=== PATIENT | male | born 1940 | race Caucasian/White ===

== ENCOUNTER → 2020-06-08 | Outpatient (CLI) | payer MEDICARE | END | disposition home or self-care (01) | LOC: SHCH 15:56 | PROVIDERS: ATTEND Internal Medicine Cardiovascular Disease | DX: I08.0 Rheumatic disorders of both mitral and aortic valves (principal); I42.0 Dilated cardiomyopathy | CPT/HCPCS: 93306; 93356 ==

== ENCOUNTER → 2022-04-09 | Outpatient (CLI) | payer MEDICARE | END | disposition home or self-care (01) | LOC: SHCH 08:21 | PROVIDERS: ATTEND Internal Medicine Cardiovascular Disease | DX: I35.8 Other nonrheumatic aortic valve disorders (principal); I51.7 Cardiomegaly; I48.0 Paroxysmal atrial fibrillation | CPT/HCPCS: 93306 ==

== ENCOUNTER 2023-03-28 08:00 | Day surgery (SDC) | payer MEDICARE ==
[2023-03-27 15:25] LABS: BASOPHILS # (AUTO) 0.04 K/uL (0.00-0.20); BASOPHILS % (AUTO) 0.5 % (0.0-5.0); EOSINOPHILS # (AUTO) 0.16 K/uL (0.00-0.70); EOSINOPHILS % (AUTO) 1.9 % (0.0-8.0); HEMATOCRIT 48.6 % (42-54); IMMATURE GRANULOCYTE ABSOLUTE 0.03 K/uL (0-1); LYMPHOCYTES % (AUTO) 24.5 % (21.0-51.0); MEAN CORPUSCULAR HEMOGLOBIN 31.6 pg (27.0-33.0); MEAN CORPUSCULAR HGB CONC 33.3 g/dL (32.0-36.0); MEAN CORPUSCULAR VOLUME 94.7 fL (79-99); MONOCYTES # (AUTO) 0.6 K/uL (0.1-1.0); NEUTROPHILS # (AUTO) 5.4 K/uL (1.8-7.7); NEUTROPHILS % (AUTO) 65.7 % (40.0-77.0); PLATELET COUNT (AUTO) 142 K/uL (130-400); RED BLOOD CELL COUNT(AUTO) 5.13 MIL/uL (4.50-6.20); RED CELL DISTRIBUTION WIDTH 15.2 % (11.0-15.5); WHITE BLOOD COUNT (AUTO) 8.2 K/uL (4.8-10.8)
[2023-03-27 15:40] LABS: INR 0.97 (0.85-1.15); PROTHROMBIN TIME 11.3 SEC (9.6-11.6)
[2023-03-27 15:42] LABS: ALBUMIN 3.3 g/dL (3.5-5.0); BILIRUBIN,TOTAL 0.6 mg/dL (0.2-1.0); CREATININE 1.2 mg/dL (0.5-1.5); PARTIAL THROMBOPLASTIN TIME 29.4 SEC (26.3-35.5); POTASSIUM 4.5 mmol/L (3.5-5.1); TOTAL PROTEIN, SERUM 6.6 g/dL (6.0-8.3)
[2023-03-27 16:24] VITALS: BP 130/70; PULSE 75; RESP 20
[~2023-03-28] VITALS: Ht 182.9 cm; Wt 101.4 kg
[2023-03-28] VITALS (9 sets, daily range): BP systolic 99–128; BP diastolic 56–87; PULSE 61–130; RESP 13–17
[~2023-03-28 08:00] MED LIST: APIX5TAB PO; ATOR20TA65 PO; BETA1TAB20 PO; CEFD300C3 PO; DAPA5TAB PO; DUPI300S SQ; EYLEA INJ; LOSA50TA64 PO; METO-408 PO; TAMS-1 PO; timolol OU
[2023-03-28] MEDS ORDERED: 0.9%NACL 1000ML 1,000 ML IV ONE ×2 (08:52→10:00)
[2023-03-28] MEDS ORDERED: LIDOCAINE HCL 400MG/20ML VIAL ONE (13:48)
[2023-03-28] MEDS ORDERED: MIDAZOLAM HCL 1 MG/ML 2ML VIAL ONE ×2 (13:48→14:50)
[2023-03-28] MEDS ORDERED: MEPERIDINE-PF 25 MG/ML SYG ONE ×2 (13:48→14:49)
[2023-03-28] MEDS ORDERED: HEPARIN 10,000 UNIT/10ML (1,000 UNIT/ML) VIAL ONE (13:48)
== END 2023-03-28 18:57 | disposition home or self-care (01) ==
LOC: DAH 08:00
PROVIDERS: ATTEND Internal Medicine Cardiovascular Disease
DX: I48.3 Typical atrial flutter (principal); I44.1 Atrioventricular block, second degree; I42.8 Other cardiomyopathies; I50.22 Chronic systolic (congestive) heart failure; K21.9 Gastro-esophageal reflux disease without esophagitis; Z90.49 Acquired absence of other specified parts of digestive tract; Z98.890 Other specified postprocedural states; Z79.01 Long term (current) use of anticoagulants; Z79.899 Other long term (current) drug therapy
CPT/HCPCS: 80053; 85025; 85610; 85730; 36415; 93005 ×2; 93653; C1894 ×2; C1732 ×2; A4649 ×2; J3490; J7030; J1644 ×2; J2250 ×2; J2175 ×2; A4215; A4222; A4221; A4663; A4216; A4223 ×3; 99156; 99157

== ENCOUNTER → 2023-04-02 | Outpatient (CLI) | payer MEDICARE ==
[~2023-04-02] MED LIST changes: +PROP225T3 PO; +TIMO.5OS OU
== END | disposition home or self-care (01) ==
LOC: SHCH 14:41
PROVIDERS: ATTEND Internal Medicine Cardiovascular Disease
DX: I42.8 Other cardiomyopathies (principal); I48.3 Typical atrial flutter
CPT/HCPCS: 93306

== ENCOUNTER 2023-05-02 06:27 | Day surgery (SDC) | payer MEDICARE ==
[2023-04-30 13:52] VITALS: BP 107/64; PULSE 73; RESP 19
[2023-04-30 13:55] LABS: BASOPHILS # (AUTO) 0.03 K/uL (0.00-0.20); BASOPHILS % (AUTO) 0.4 % (0.0-5.0); EOSINOPHILS # (AUTO) 0.15 K/uL (0.00-0.70); EOSINOPHILS % (AUTO) 1.9 % (0.0-8.0); HEMATOCRIT 44.3 % (42-54); IMMATURE GRANULOCYTE ABSOLUTE 0.03 K/uL (0-1); LYMPHOCYTES # (AUTO) 1.7 K/uL (1.0-4.8); LYMPHOCYTES % (AUTO) 20.7 % (21.0-51.0); MEAN CORPUSCULAR HEMOGLOBIN 31.9 pg (27.0-33.0); MEAN CORPUSCULAR HGB CONC 34.1 g/dL (32.0-36.0); MEAN CORPUSCULAR VOLUME 93.5 fL (79-99); MONOCYTES # (AUTO) 0.5 K/uL (0.1-1.0); MONOCYTES % (AUTO) 6.5 % (3.0-13.0); NEUTROPHILS # (AUTO) 5.6 K/uL (1.8-7.7); NEUTROPHILS % (AUTO) 70.1 % (40.0-77.0); PLATELET COUNT (AUTO) 132 K/uL (130-400); RED BLOOD CELL COUNT(AUTO) 4.74 MIL/uL (4.50-6.20); RED CELL DISTRIBUTION WIDTH 14.8 % (11.0-15.5)
[2023-04-30 14:03] LABS: CREATININE 1.2 mg/dL (0.5-1.5); POTASSIUM 4.1 mmol/L (3.5-5.1)
[~2023-05-02] VITALS: Ht 182.9 cm; Wt 103.9 kg
[2023-05-02] VITALS (8 sets, daily range): BP systolic 100–106; BP diastolic 54–61; PULSE 57–64; RESP 16
[~2023-05-02 06:27] MED LIST changes: -CEFD300C3 PO; -DUPI300S SQ; -EYLEA INJ; -timolol OU
[2023-05-02] MEDS: 0.9%NACL 1000ML 1,000 ML IV ONE (07:44)
[2023-05-02] MEDS ORDERED: PROPOFOL 10 MG/ML 20ML VIAL IV ONE (09:17)
[2023-05-02] MEDS ORDERED: SUCCINYLCHOLINE CHLORIDE 20 MG/ML 10 ML VIAL ONE (09:18)
== END 2023-05-02 10:50 | disposition home or self-care (01) ==
LOC: DAH 06:27
PROVIDERS: ATTEND Internal Medicine Cardiovascular Disease
DX: I48.19 Other persistent atrial fibrillation (principal); I48.92 Unspecified atrial flutter; K21.9 Gastro-esophageal reflux disease without esophagitis; I25.2 Old myocardial infarction; Z83.3 Family history of diabetes mellitus; Z82.49 Family history of ischemic heart disease and other diseases of the circulatory system; Z82.5 Family history of asthma and other chronic lower respiratory diseases; Z82.3 Family history of stroke; Z83.79 Family history of other diseases of the digestive system; Z72.89 Other problems related to lifestyle
CPT/HCPCS: 80048; 85025; 36415; 92960; 93005 ×2; J0330; J7030; J2704; A4620; A4215; A4213; A4222; A4221; A4663; A4216; A4223 ×3; 96360; J3490

== ENCOUNTER → 2024-04-15 | Outpatient (CLI) | payer MEDICARE ==
[~2024-04-15] VITALS: Ht 182.9 cm; Wt 101.6 kg
[~2024-04-15] MED LIST changes: +AMIO200T68 PO; +DRON400T7 PO
[2024-04-15 13:46] LABS: BASOPHILS # (AUTO) 0.03 K/uL (0.00-0.20); BASOPHILS % (AUTO) 0.3 % (0.0-5.0); EOSINOPHILS # (AUTO) 0.08 K/uL (0.00-0.70); EOSINOPHILS % (AUTO) 0.8 % (0.0-8.0); HEMATOCRIT 45.7 % (42-54); IMMATURE GRANULOCYTE ABSOLUTE 0.04 K/uL (0-1); LYMPHOCYTES # (AUTO) 1.4 K/uL (1.0-4.8); LYMPHOCYTES % (AUTO) 13.8 % (21.0-51.0); MEAN CORPUSCULAR HEMOGLOBIN 31.6 pg (27.0-33.0); MEAN CORPUSCULAR HGB CONC 33.7 g/dL (32.0-36.0); MEAN CORPUSCULAR VOLUME 93.6 fL (79-99); MONOCYTES # (AUTO) 0.7 K/uL (0.1-1.0); MONOCYTES % (AUTO) 6.9 % (3.0-13.0); NEUTROPHILS # (AUTO) 7.7 K/uL (1.8-7.7); NEUTROPHILS % (AUTO) 77.8 % (40.0-77.0); PLATELET COUNT (AUTO) 146 K/uL (130-400); RED BLOOD CELL COUNT(AUTO) 4.88 MIL/uL (4.50-6.20); RED CELL DISTRIBUTION WIDTH 15.4 % (11.0-15.5); WHITE BLOOD COUNT (AUTO) 9.9 K/uL (4.8-10.8)
[2024-04-15 13:55] VITALS: BP 141/91; PULSE 96; RESP 15; TEMP 98.1
[2024-04-15 13:56] LABS: CREATININE 0.9 mg/dL (0.5-1.3); POTASSIUM 4.2 mmol/L (3.5-5.1)
== END | disposition home or self-care (01) ==
LOC: CANPRESDC → DAH 13:14 → EDSTATUS 04-17 08:00
PROVIDERS: ATTEND Internal Medicine Cardiovascular Disease
DX: Z01.812 Encounter for preprocedural laboratory examination (principal); I48.19 Other persistent atrial fibrillation
CPT/HCPCS: 36415; 80048; 85025

== ENCOUNTER 2024-04-16 08:41 | Observation (INO) | payer MEDICARE ==
[2024-04-16] VITALS (7 sets, daily range): BP systolic 120–140; BP diastolic 74–97; PULSE 54–108; RESP 16–20; TEMP 98.1–98.7; O2SAT 96–97
[~2024-04-16] VITALS: Ht 182.9 cm; Wt 100.0 kg
[~2024-04-16 08:41] MED LIST changes: -AMIO200T68 PO; -LOSA50TA64 PO; -PROP225T3 PO
[2024-04-16 10:25] LABS: HEMATOCRIT 44.2 % (42-54); MEAN CORPUSCULAR HEMOGLOBIN 31.8 pg (27.0-33.0); MEAN CORPUSCULAR HGB CONC 33.5 g/dL (32.0-36.0); MEAN CORPUSCULAR VOLUME 94.8 fL (79-99); RED BLOOD CELL COUNT(AUTO) 4.66 MIL/uL (4.50-6.20); RED CELL DISTRIBUTION WIDTH 15.2 % (11.0-15.5); WHITE BLOOD COUNT (AUTO) 10.1 K/uL (4.8-10.8)
[2024-04-16 10:52] LABS: BILIRUBIN,TOTAL 0.6 mg/dL (0.2-1.0); CREATININE 1.1 mg/dL (0.5-1.3); MAGNESIUM 2.1 mg/dL (1.80-2.40); POTASSIUM 4.2 mmol/L (3.5-5.1); THYROID STIMULATING HORMONE 1.3 uIU/mL (0.36-3.74); TOTAL PROTEIN, SERUM 5.6 g/dL (6.0-8.3)
--- NOTE | 2024-04-16 11:00 | NUR ---
PATIENT PLACED INTO RM 18.
[2024-04-16] MEDS ORDERED: PoTASSium chloRIDE 20MEQ ER 20 MEQ ERTAB PO PRN (12:30)
[2024-04-16] MEDS ORDERED: PoTASSium chl 10% ELIXIR 20MEQ 20 MEQ/15 ML UDCUP PO PRN (12:30)
[2024-04-16] MEDS ORDERED: PoTASSium chloRIDE 20MEQ/100ML 100 ML IV PRN (12:30)
[2024-04-16] MEDS: AMIOdarone 900MG VIAL 150 MG in DEXTROSE 5%-WATER 100 ML IV SCH (13:07)
[2024-04-16] MEDS: AMIOdarone 900MG VIAL 360 MG in DEXTROSE 5%-WATER 200 ML IV SCH (13:15)
[2024-04-16] MEDS: AMIOdarone 900MG VIAL 540 MG in DEXTROSE 5%-WATER 300 ML IV SCH (19:35)
[2024-04-16] MEDS: COPPER PO SCH (20:23)
[2024-04-16] MEDS: TIMOLOL MALEATE 0.5% 5 ML BOTTLE OU SCH (20:23)
[2024-04-16] MEDS: ZINC PO SCH (20:23)
[2024-04-16] MEDS: VIT C PO SCH (20:23)
[2024-04-16] MEDS: VIT E PO SCH (20:23)
[2024-04-16] MEDS: VIT A PO SCH (20:23)
[2024-04-16] MEDS: tamSULOsin HCL 0.4 MG CAP.ER.24H PO SCH (20:24)
[2024-04-16] MEDS: atorVAStatin 20 MG TABLET PO SCH (20:24)
[2024-04-16] MEDS: APIXaban 5 MG TABLET PO SCH (20:24)
[2024-04-17] VITALS (13 sets, daily range): BP systolic 117–134; BP diastolic 46–82; PULSE 53–97; RESP 16–18; TEMP 97.9–99.6; O2SAT 96
[2024-04-17] MEDS: (Dapagliflozin Propanediol (Farxiga) 5 MG) PO SCH (09:00)
[2024-04-17] MEDS ORDERED: proPOFol 10 MG/ML 20ML VIAL IV ONE (11:04)
--- NOTE | 2024-04-17 11:35 | NUR ---
CARDIO VERSION COMPLETED BY DR MASSEY ANESTHESIA PRESENT
--- NOTE | 2024-04-17 12:07 | PRN ---
Procedure Note INDICATION FOR PROCEDURE: Persistent atrial fibrillation PROCEDURE: Cardioversion DATE OF PROCEDURE: 04/17/24 VINYL WELDER AND FABRICATOR: Breezy Massey MD PROCEDURE NOTE: The patient was brought to the day patient area in a fasting state. Anesthesia was provided by the anesthesia service. A synchronized shock of 120 joules was delivered resulting in sinus rhythm. The patient tolerated the procedure well. There were no complications. COMPLICATIONS: None IMPRESSION: Persistent atrial fibrillation status post successful cardioversion PLAN: 1. The patient will be observed and discharged home later today once amiodarone infusion is completed. 2. Follow-up with me in the office in approximately two weeks. BREEZY MASSEY MD Apr 17, 2024 12:07
[2024-04-17] MEDS ORDERED: AMIO200T68 PO (12:11)
--- NOTE | 2024-04-17 16:54 | EKG ---
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
[2024-04-17] MEDS: AMIOdarone 200 MG TABLET PO ONE (17:20)
[2024-04-18] MEDS ORDERED: metOPROLol sucCINATE 25 MG TAB.SR.24H PO SCH (09:00)
== END 2024-04-17 17:30 | disposition home or self-care (01) ==
LOC: EDH 08:41 → DIRECT 08:42 → 2AH 11:33
PROVIDERS: ADMIT Internal Medicine Cardiovascular Disease; ATTEND Internal Medicine Cardiovascular Disease
DX: I48.19 Other persistent atrial fibrillation (principal); I42.8 Other cardiomyopathies; I49.5 Sick sinus syndrome; I10 Essential (primary) hypertension; I49.9 Cardiac arrhythmia, unspecified; Z79.899 Other long term (current) drug therapy
CPT/HCPCS: 96365; 96366 ×2; 84443; 83735; 80053; 85027; 36415; 92960; 93005; G0378 ×32; G0379; J7060 ×3; J0282 ×3; J2704; J3490

== ENCOUNTER 2024-05-12 06:01 | Day surgery (SDC) | payer MEDICARE ==
[2024-05-08 12:03] VITALS: BP 179/88; PULSE 51; RESP 16; TEMP 97.4
--- NOTE | 2024-05-08 12:09 | EKG ---
[facility] Test Date: 2024-05-08 Test Time: 12:45:54 Pat Name: ADAMS GAXIOLA Department: [facility] Room: Gender: M Extractor Loader And Unloader: [id number] : 1940 Requested By: JAZMIN MASSEY Order Number: [id number] Reading MD: Mitchell Leone Measurements Intervals [place] Rate: 53 P: -19 UT: 157 QRS: 45 QRSD: 122 T: 165 QT: 488 QTc: 459 Interpretive Statements Sinus rhythm Nonspecific intraventricular conduction delay Compared to ECG 04/17/2024 11:40:42 Intraventricular conduction delay now present Electronically Signed On 05-08-2024 14:50:24 INVISIBLE BRACES ORTHODONTIST by Mitchell Leone Please click the below link to view image of tracing.
[2024-05-08 12:37] LABS: POTASSIUM 5.1 mmol/L (3.5-5.1)
[2024-05-08 13:02] LABS: BASOPHILS # (AUTO) 0.03 K/uL (0.00-0.20); BASOPHILS % (AUTO) 0.3 % (0.0-5.0); EOSINOPHILS # (AUTO) 0.04 K/uL (0.00-0.70); EOSINOPHILS % (AUTO) 0.4 % (0.0-8.0); HEMATOCRIT 46.5 % (42-54); IMMATURE GRANULOCYTE ABSOLUTE 0.08 K/uL (0-1); LYMPHOCYTES # (AUTO) 1.7 K/uL (1.0-4.8); LYMPHOCYTES % (AUTO) 18.5 % (21.0-51.0); MEAN CORPUSCULAR HGB CONC 33.1 g/dL (32.0-36.0); MEAN CORPUSCULAR VOLUME 96.5 fL (79-99); MONOCYTES # (AUTO) 0.6 K/uL (0.1-1.0); MONOCYTES % (AUTO) 6.7 % (3.0-13.0); NEUTROPHILS # (AUTO) 6.7 K/uL (1.8-7.7); NEUTROPHILS % (AUTO) 73.2 % (40.0-77.0); PLATELET COUNT (AUTO) 159 K/uL (130-400); RED BLOOD CELL COUNT(AUTO) 4.82 MIL/uL (4.50-6.20); RED CELL DISTRIBUTION WIDTH 15.8 % (11.0-15.5); WHITE BLOOD COUNT (AUTO) 9.1 K/uL (4.8-10.8)
[2024-05-08 13:04] LABS: INR 1.05 (0.85-1.15); PROTHROMBIN TIME 11.1 SEC (9.6-11.6)
[2024-05-08 13:05] LABS: PARTIAL THROMBOPLASTIN TIME 28.8 SEC (26.3-35.5)
[~2024-05-12] VITALS: Ht 182.9 cm; Wt 101.8 kg
[2024-05-12] VITALS (19 sets, daily range): BP systolic 98–153; BP diastolic 52–76; PULSE 46–54; RESP 13–17; TEMP 97.1–97.9
[~2024-05-12 06:01] MED LIST changes: +AMIO200T68 PO; -DRON400T7 PO
[2024-05-12] MEDS ORDERED: FENTanyl CITRate PF 50 MCG/1 ML 2ML VIAL ONE (06:48)
[2024-05-12] MEDS ORDERED: proPOFol 10 MG/ML 20ML VIAL IV ONE (06:48)
[2024-05-12] MEDS ORDERED: rocuRONium bROMide 10MG/1ML 5ML VL ONE ×2 (06:48→10:27)
[2024-05-12] MEDS ORDERED: LIDOCAINE PF 100MG/5ML (2%) SYRINGE 5ML ONE (06:48)
[2024-05-12] MEDS ORDERED: ondanSETRON 4MG INJ ONE (06:49)
[2024-05-12] MEDS ORDERED: phenylEPHRINE HCL 10 MG/ML 1ML VIAL IV ONE (06:49)
[2024-05-12] MEDS: 0.9%NACL 1000ML 1,000 ML IV ONE (07:27)
[2024-05-12] MEDS ORDERED: HEParin 10,000 UNIT/10ML (1,000 UNIT/ML) VIAL ONE ×3 (07:47→12:36)
[2024-05-12] MEDS ORDERED: HEParin-NS 1,000 UNIT/500 ML 1,500 ML IV ONE (07:47)
[2024-05-12] MEDS ORDERED: LIDOCAINE HCL 1% MDV 50ML VIAL ONE (07:47)
[2024-05-12] MEDS ORDERED: GLYCOPYRROLATE 0.2 MG/ML 5 ML VIAL ONE (10:27)
[2024-05-12] MEDS ORDERED: PROTamine SULFate 10 MG/ML 25ML VIAL IV ONE (13:03)
[2024-05-12] MEDS ORDERED: SUGAMMADEX SODIUM 200 MG/2 ML VIAL IV ONE (13:18)
[2024-05-12] MEDS ORDERED: PANT40TA55 PO (13:25)
[2024-05-12] MEDS ORDERED: SUCR1TAB2 PO (13:25)
[2024-05-12] MEDS: SUCRALFATE 1 GM/10 ML PO ONE (15:12)
[2024-05-12] MEDS: PANTOPrazole 40 MG TAB DR PO ONE (15:12)
== END 2024-05-12 16:04 | disposition home or self-care (01) ==
LOC: DAH 06:01
PROVIDERS: ATTEND Internal Medicine Cardiovascular Disease
DX: I48.19 Other persistent atrial fibrillation (principal); I10 Essential (primary) hypertension; I25.10 Atherosclerotic heart disease of native coronary artery without angina pectoris; I42.8 Other cardiomyopathies; I48.92 Unspecified atrial flutter; K21.9 Gastro-esophageal reflux disease without esophagitis; E66.9 Obesity, unspecified; Z90.49 Acquired absence of other specified parts of digestive tract; Z96.649 Presence of unspecified artificial hip joint; Z96.659 Presence of unspecified artificial knee joint; Z68.30 Body mass index [BMI] 30.0-30.9, adult; Z79.01 Long term (current) use of anticoagulants; Z79.899 Other long term (current) drug therapy
CPT/HCPCS: 80048; 85025; 85610; 85730; 36415; 93005; 93656; 85347 ×10; C1894 ×3; C1732 ×3; A4649 ×2; C1760 ×3; C1766; J3010; J7030; J3490 ×4; J2003; J1644 ×4; J2704; J2405; J2371; A4215; A4222; A4221; A4663; A4216; A4606; J2720; A4223 ×3

== ENCOUNTER 2025-02-08 11:26 | Inpatient (IN) | payer MEDICARE ==
[~2025-02-08] VITALS: Ht 182.9 cm; Wt 101.2 kg
--- NOTE | 2025-02-08 12:05 | EKG ---
[facility] Test Date: 2025-02-08 Test Time: 11:30:39 Pat Name: ADAMS GAXIOLA Department: ED Room: Gender: M Train Starter: [id number] : 1940 Requested By: RHETT RANKIN Order Number: [id number] Reading MD: Nathan Miller Measurements Intervals [place] Rate: 107 P: 0 SC: 0 QRS: 1 QRSD: 141 T: 20 QT: 398 QTc: 532 Interpretive Statements Atrial flutter Ventricular premature complex Right bundle branch block Electronically Signed On 02-08-2025 13:17:37 DENTAL HYGIENE TEACHER by Nathan Miller Please click the below link to view image of tracing.
[2025-02-08 12:12] LABS: NUCLEATED RED BLOOD CELLS 0.0 % (0.0-0.19); PLATELET COUNT (AUTO) 134.0 K/uL (130-400); RED BLOOD CELL COUNT(AUTO) 5.04 MIL/uL (4.50-6.20); RED CELL DISTRIBUTION WIDTH 15.0 % (11.0-15.5); WHITE BLOOD COUNT (AUTO) 9.3 K/uL (4.8-10.8)
[2025-02-08 12:24] LABS: CREATININE 1.0 mg/dL (0.5-1.3); GLOMERULAR FILTR. RATE CALC 75.0 mL/min (>90); GLUCOSE,RANDOM 113.0 mg/dL (70-105); SODIUM SERUM 141.0 mmol/L (136-145); UREA NITROGEN, BLOOD 18.0 mg/dL (7-18)
[2025-02-08 12:28] LABS: ASPARTATE AMINOTRANSFERASE 21.0 U/L (10-37); TOTAL PROTEIN, SERUM 6.2 g/dL (6.0-8.3)
[2025-02-08 12:35] LABS: APPEARANCE,URINE CLEAR (CLEAR); GLUCOSE, URINE (UA) >=1000 mg/dL (NEGATIVE); LEUKOCYTE ESTERASE ,URINE NEGATIVE Leu/uL (NEGATIVE); NITRATE,URINE NEGATIVE (NEGATIVE); OCCULT BLOOD,URINE NEGATIVE (NEGATIVE)
[2025-02-08 12:37] LABS: ADD UA MICROSCOPIC YES
--- NOTE | 2025-02-08 13:06 | HMCIMG ---
EXAM: CR CHEST, 1 VIEW CLINICAL HISTORY: CP COMPARISON: None provided TECHNIQUE: Single frontal radiograph of the chest was obtained. FINDINGS: Lines/Devices: None. Lungs: Radiographically clear. No consolidation or ground-glass opacities are observed. There is no pleural effusion. There is no pneumothorax. Mediastinum and cardiovascular structures: The cardiac silhouette is not enlarged. The central airway and mediastinal contours are unremarkable. Bones and soft tissues: Small radiopaque densities are seen at the right humeral head ? post labral surgery. IMPRESSION: 1. Two small radiopaque densities overlying the right humeral head, likely postsurgical (e.g., anchors/suture from prior labral surgery or prosthetic hardware). /[place]
--- NOTE | 2025-02-08 14:00 | ERN ---
General Chief Complaint: Hypertension Stated Complaint: HIGH BLOOD PRESSURE READINGS AT HOME. Time Seen by MD: 11:28 Source: patient, family History of Present Illness Initial Comments Patient is a an 84-year-old gentleman coming in to be evaluated for racing heart palpitations and chest discomfort. Per patient he has a cardiac history in his is a loop recorder. Patient states that earlier today his blood pressure was high he checked it it was in the low 200s and heart rate was in the 170s. Allergies: Coded Allergies: No Known Drug Allergies (Unverified Allergy, Unknown, 03/27/23) Home Meds Active Scripts Sucralfate (Sucralfate) 1 Gram Tablet, 1 TAB PO QID for 15 Days, #60 TAB 0 Refills MUST DISSOLVE IN WATER DO NOT CRUSH Prov:JAZMIN MASSEY MD 05/12/24 Pantoprazole Sodium (Protonix) 40 Mg Ectab, 1 TAB PO DAILY, #15 TAB Prov:JAZMIN MASSEY MD 05/12/24 Amiodarone HCl (Amiodarone HCl) 200 Mg Tablet, 1 TAB PO BID for 30 Days, #60 TAB 3 Refills Prov:JAZMIN MASSEY MD 04/17/24 Reported Medications Timolol Maleate (Timoptic 0.5% Ophth Soln) 0.5 % Opsol, 1 DROP OU BID 04/30/23 Metoprolol Succinate (Metoprolol Succinate) 25 Mg Tab.er.24h, 12.5 MG PO DAILY, TAB 03/27/23 Vit A/Vit C/Vit E/Zinc/Copper (Preservision Areds Tablet) 2,148-113 Tablet, 1 EACH PO BID, TAB 03/27/23 Apixaban (Eliquis) 5 Mg Tablet, 5 MG PO BID, TAB 03/27/23 Dapagliflozin Propanediol (Farxiga) 5 Mg Tablet, 5 MG PO AM, TAB 03/27/23 Tamsulosin HCl (Flomax) 0.4 Mg Cap.er.24h, 0.4 MG PO HS, CAPSULE.DR 03/27/23 Atorvastatin Calcium (Atorvastatin Calcium) 20 Mg Tablet, 20 MG PO HS, TAB 03/27/23 Past Medical History Past Medical History: A-Fib, Hypertension Past Surgical History: Appendectomy Surgical History Other: BILATERAL HIP SX, KNEE SX ROS Dictation CONSTITUTIONAL: No chills, no fever, no weakness, no diaphoresis, no malaise. HEAD/FACE: No signs of trauma. EENT: No eye pain, no blurred vision, no tearing, no double vision, no ear pain, no ear discharge, no nose pain, no nasal congestion, no throat pain, no throat swelling, no mouth pain. RESPIRATORY: No cough, no orthopnea, no SOB, no stridor, no wheezing. CARDIOVASCULAR: chest pain, no edema, palpitations, no syncope. GASTROINTESTINAL/ABDOMINAL: No abdominal pain, no constipation, no diarrhea, no nausea, no vomiting. GENITOURINARY: No abnormal discharge, no dysuria, no frequent urination, no hematuria. No complaints of pain in the genitals. MUSCULOSKELETAL: No back pain, no gout, no joint pain, no joint swelling, no muscle pain, no muscle stiffness, no neck pain. INTEGUMENTARY: No change in color, no change in hair/nails, no dryness, no lesion, no lumps, no rash. NEUROLOGICAL/PSYCH: No anxiety, not depressed, no emotional problem, no headac he, no numbness, no pre-existing deficit, no history of seizures, no tremors, no weakness. HEMATOLOGIC/LYMPHATIC: Not anemic, no history of blood clots, no apparent bleeding, no bruising, glands not swollen. All Systems Negative, Except as Noted. Physical Exam Physical Exam Dictation VITAL SIGNS: Reviewed. GENERAL APPEARANCE: Alert, oriented x3, no acute distress, obese. HEAD AND FACE: Non-traumatic. EYES: PERRL, pink conjunctivas, eyelid no trauma, anterior chamber clear. EARS: Pinnas intact and no signs of trauma or erythema. Ear canals clear and no discharge. TMs no erythema. NOSE: No discharge, no bleeding. OROPHARYNX: Mouth normal, teeth no caries, tongue pink. Pharynx clear, no erythema. Tonsils no exudates, no abscesses noted. Mucous membrane moist. NECK: Supple, non-tender, no thyromegaly, no masses, no JVD, no bruits. BREAST: Deferred. CHEST: No tenderness, no crepitus, no paradoxical movement, no retractions. LUNGS: Clear, well-ventilated, symmetric, no rales, no wheezing, no rhonchi, no stridor, good breath sounds bilaterally. HEART: Regular rate, regular rhythm, no murmur, no gallops. VASCULAR: No peripheral edema. ABDOMEN: Soft, positive bowel sounds, nondistended, no guarding, nontender, no rebound, no masses no hepatomegaly, no splenomegaly, no Chowdary's sign, no hernias. RECTAL: Deferred. GENITAL: Deferred. NEUROLOGICAL: Normal speech, gross motor function intact, gross sensory function intact. MUSCULOSKELETAL: Neck nontender, full range of motion, back nontender, full range of motion. EXTREMITIES: Nontender, full range of motion. SKIN: Color pink, dry, no turgor, no rash, no lacerations, no abrasions, no contusions. LYMPHATICS: Deferred. Results Laboratory and Microbiology Lab and Micro Result Laboratory Tests Test 02/08/25 12:00 02/08/25 12:02 02/08/25 12:49 Urine Color YELLOW (YELLOW) Urine Appearance CLEAR (CLEAR) Urine pH 5.0 (5.0-8.0) Urine Specific [place] 1.030 (1.001-1.031) Urine Protein NEGATIVE mg/dL (NEGATIVE) Urine Glucose (UA) >=1000 mg/dL (NEGATIVE) H Urine Ketones NEGATIVE mg/dL (NEGATIVE) Urine Occult Blood NEGATIVE (NEGATIVE) Urine Nitrate NEGATIVE (NEGATIVE) Urine Bilirubin NEGATIVE mg/dL (NEGATIVE) Urine Urobilinogen 0.2 mg/dL (0.2-1.0) Urine Leukocyte Esterase NEGATIVE Misael/uL Urine RBC 2-5 /HPF (0-1) H Urine WBC 0-1 /HPF (0-1) Urine Bacteria None /HPF (None Seen) White Blood Count 9.3 K/uL (4.8-10.8) Red Blood Count 5.04 MIL/uL (4.50-6.20) Hemoglobin 15.8 g/dL (14.0-18.0) Hematocrit 47.7 % (42-54) Mean Corpuscular Volume 94.6 fL (79-99) Mean Corpuscular Hemoglobin 31.3 pg (27.0-33.0) Mean Corpuscular Hemoglobin Concent 33.1 g/dL (32.0-36.0) Red Cell Distribution Width 15.0 % (11.0-15.5) Platelet Count 134 K/uL (130-400) Mean Platelet Volume 11.1 fL (7.5-10.5) H Nucleated Red Blood Cells 0.0 % (0.0-0.19) Prothrombin Time 11.3 SEC (9.6-11.6) Prothromb Time International Ratio 1.07 (0.85-1.15) Activated Partial Thromboplast Time 28.8 SEC (26.3-35.5) Sodium Level 141 mmol/L (136-145) Potassium Level 4.0 mmol/L (3.5-5.1) Chloride Level 106 mmol/L (101-111) Carbon Dioxide Level 29 mmol/L (21-32) Blood Urea Nitrogen 18 mg/dL (7-18) Creatinine 1.0 mg/dL (0.5-1.3) Glomerular Filtration Rate Calc 75 mL/min (>90) Random Glucose 113 mg/dL (70-105) H Hemoglobin A1c 6.2 % (4.0-6.0) H Estimated Average Glucose (eAG) 131 mg/dL (70-126) H Total Calcium 8.9 mg/dL (8.5-10.1) Magnesium Level 2.10 mg/dL (1.80-2.40) Total Bilirubin 1.0 mg/dL (0.2-1.0) Aspartate Amino Transf (AST/SGOT) 21 U/L (10-37) Alanine Aminotransferase (ALT/SGPT) 28 U/L (12-78) Alkaline Phosphatase 70 U/L (50-136) Troponin I High Sensitivity 17 ng/L (4-75) 17 ng/L (4-75) B-Type Natriuretic Peptide 81 pg/mL (0-100) Total Protein 6.2 g/dL (6.0-8.3) Albumin 3.2 g/dL (3.5-5.0) L Procalcitonin < 0.05 ng/mL (0.05-0.5) L Thyroid Stimulating Hormone (TSH) 1.65 uIU/mL (0.36-3.74) # Labs Reviewed?: Yes EKG/XRAY/US/CT/MRI EKG Comment 02/08/2025 time 11:30 a.m. Ventricular rate [address] wave elevation or depression X-RAY Comment [facility] [address] [place] [id number] IMAGING REPORT Signed PATIENT: ADAMS GAXIOLA MR#: [id number] : 1940 SEX: M AGE: 84 LOCATION: [facility] ORDER 44 STATUS: REG ER REPORT#: [id number] SERVICE [id number] REASON: cp ORDERING PHYSICIAN: RHETT RANKIN MD PROCEDURE: CXR1VW - CHEST 1VW EXAM: CR CHEST, 1 VIEW CLINICAL HISTORY: CP COMPARISON: None provided TECHNIQUE: Single frontal radiograph of the chest was obtained. FINDINGS: Lines/Devices: None. Lungs: Radiographically clear. No consolidation or ground-glass opacities are observed. There is no pleural effusion. There is no pneumothorax. Mediastinum and cardiovascular structures: The cardiac silhouette is not enlarged. The central airway and mediastinal contours are unremarkable. Bones and soft tissues: Small radiopaque densities are seen at the right humeral head ? post labral surgery. IMPRESSION: 1. Two small radiopaque densities overlying the right humeral head, likely postsurgical (e.g., anchors/suture from prior labral surgery or prosthetic hardware). /[place] DICTATED BY: RANJANA WARNER MD DATE: 02/08/251405 ELECTRONICALLY SIGNED BY: RANJANA WARNER MD DATE: 02/08/251405 [facility] MDM: Differential diagnosis: Arrhythmias, sinus tachycardia, history of AFib, Rationale: Tests considered and ordered secondary to shared decision making incl ude: Previous outside records reviewed: Old ER visits. Risk of complication and/or morbidity or mortality of patient management: None Medications-Per medication reconciliation Need for hospitalization: Patient does meet criteria for hospitalization. Need for emergency major/minor surgery: No There are no social concerns with this patient. Prescription drug management Prescriptions will include symptomatic care Patient's prior external medical records from other ER visits were reviewed by me as indicated. Prior testing and results from previous visits were reviewed. Prior tests were taken into account with medical decision making and resource utilization, independent historian/historians were used to obtain complete medical history. I independently interpreted the test that were performed, results were reviewed by me and considered findings on radiology if ordered. Medical management and examination interpretation discussions were had by me with other qualified healthcare professionals as indicated for the patient's care. PATIENT WILL BE ADMITTED UNDER THE CARE OF HOSPITALIST GROUP ED Course Orders Procedure Category Date Status Time Chest 1vw RAD 02/08/25 Resulted 11:44 12 Lead Ekg Tracing- EKG 02/08/25 Resulted Technical 11:44 Magnesium LAB 02/08/25 Complete 11:44 Troponin I High LAB 02/08/25 Complete Sensitivity 11:44 Urinalysis Profile LAB 02/08/25 Complete 11:44 Cbc Without LAB 02/08/25 Complete Differential 11:44 Comprehensive LAB 02/08/25 Complete Metabolic Panel 11:44 Troponin I High LAB 02/08/25 Complete Sensitivity 12:42 Vital Signs Date Time Temp Pulse Resp B/P (MAP) Pulse Ox O2 Delivery O2 Flow Rate FiO2 02/08/25 12:00 98.1 102 17 122/68 96 Room Air* 0 21 02/08/25 11:28 98.1 101 20 155/89 96 Room Air DX & DISP Disposition: Inpatient Decision to Admit Time: 01:00 Departure Impression: Primary Impression: Afib Additional Impression: Hypertensive urgency Condition: Stable Referrals: JAZMIN MASSEY MD (PCP) RHETT RANKIN MD Feb 08, 2025 14:00
--- NOTE | 2025-02-08 14:58 | HP ---
[facility] PHYS[facility] Date of Service: Feb 08, 2025 Time of Service: 14:49 HISTORY OF PRESENT ILLNESS: 84 Year old male with past medical history of atrial fibrillation status post ablation, hypertension, hyperlipidemia presented to the hospital secondary to elevated blood pressure. Patient states he is currently being evaluated for sinusitis by his ENT. He was going to be scheduled for outpatient sinus surgery in February. He went ENT clinic very was noted to have a elevated blood pressure with systolics in the 160s. During the time they also noted that his heart rate was elevated. Patient denied any palpitations, chest pain, shortness of breath, abdominal pain, nausea, vomiting. He does have symptoms secondary to sinusitis but denies any breathing difficulties. Denied any fever, chills, cough. He is able to walk off of mild but gets intermittent episodes of shortness of breath. He has also noted lower extremity pitting edema. He denied any orthopnea, PND. He is unable to recall the medications he takes at home. He did state that he took his medications in the morning today. Does have a loop recorder present. Labs were notable for white count of 9.3, hemoglobin was 15.8, platelet count was 134 K, sodium was 141, potassium was 4.0, creatinine was 1.0, blood glucose was 113 Chest x-ray showed no acute infiltrates. When seen at bedside patient's systolic blood pressure was in the 130s, heart heart rate was noted to be in the 90s to high 100s. Patient was saturating 96% on room air REVIEW OF SYSTEMS CONSTITUTIONAL: Denies fevers, chills, or night sweats. No unintentional weight loss reported. NEUROLOGICAL: Denies headache, amaurosis fugax, motor weakness, sensory deficit, vertigo/spinning sensation, gait abnormalities, or tremors. ENT: No hearing loss, otalgia, otorrhea, rhinitis, rhinorrhea, hoarseness, or sore throat. CARDIOVASCULAR: Denies any exertional angina, dyspnea on exertion, orthopnea, paroxysmal nocturnal dyspnea, life-threatening arrhythmias, claudication. Positive for shortness of breath, palpitations PULMONARY: Denies any shortness of breath, cough, phlegm/sputum, hemoptysis, pleuritic chest pain. GASTROINTESTINAL: Denies any type of dysphagia to either liquids or solids. Denies nausea, vomiting, pyrosis, early satiety, abdominal pain, diarrhea, constipation, or changes in stool consistency or caliber. Denies coffee-ground emesis, hematemesis, hematochezia, or melanotic stools. GENITOURINARY: Denies frequency, urgency, nocturia, hematuria or incontinence (Storage/Irritative symptoms.) Low urinary stream, straining to void, urinary i ntermittency or hesitancy, splitting of the voiding stream, terminal dribbling. ENDOCRINOLOGIC: Denies polyuria, polydipsia, polyphagia or heat/cold intolerances. HEMATOLOGIC: Denies thrombophilia/previous clots, or coagulopathy/bleeding disorders. ONCOLOGIC: Denies personal history of malignancy. DERMATOLOGIC: Denies rashes or pruritus. PSYCHIATRIC: Denies any suicidal or homicidal ideation. Denies hallucinations. PAST MEDICAL HISTORY: Atrial fibrillation, hypertension, hyperlipidemia PAST SURGICAL HISTORY: History of AFib ablation history of knee surgery, history of hernia repair, history of appendectomy PAST SOCIAL HISTORY: Denied any smoking, alcohol, drug abuse FAMILY HISTORY: Denied any pertinent family history. Coded Allergies: No Known Drug Allergies (Unverified Allergy, Unknown, 03/27/23) PHYSICAL EXAM GENERAL APPEARANCE: The patient is awake, alert, and oriented, in no acute cardiopulmonary distress. NEUROLOGICAL: Cranial nerves II-XII grossly intact. Motor is 5/5 in bilateral upper and lower extremities proximal to distal. No sensory deficits. HEENT: Face is symmetric. Pupils are equal and reactive. Extraocular movements are intact. NECK: Supple. No JVD. No thyromegaly. No submental, submandibular, pre- /postauricular, occipital or supraclavicular lymphadenopathy. CHEST: Normal chest expansion. No Telemetry. LUNGS: Absence of any rales, rhonchi or any wheezing. CARDIOVASCULAR: Regular. S1 and S2 normal. No appreciable rubs, murmurs or ga llops. ABDOMEN: Soft, nontender, and nondistended. There is no rebound, voluntary guarding, or rigidity. : Deferred. No Denise. EXTREMITIES: 1+ pitting edema in the lower extremity bilaterally and not cyanotic. No clubbing. Good capillary refill. SKIN: No skin breakdown. Vital Sign (Last 24 Hours) 02/08/25 12:00 Temp 98.1 Pulse 102 Resp 17 B/P (MAP) 122/68 Pulse Ox 96 O2 Delivery Room Air* O2 Flow Rate 0 FiO2 21 LABS: Laboratory: Test 02/08/25 12:49 02/08/25 12:02 02/08/25 12:00 Range/Units Troponin I High Sensitivity 17 4-75 ng/L White Blood Count 9.3 4.8-10.8 K/uL Red Blood Count 5.04 4.50-6.20 MIL/uL Hemoglobin 15.8 14.0-18.0 g/dL Hematocrit 47.7 42-54 % Mean Corpuscular Volume 94.6 79-99 fL Mean Corpuscular Hemoglobin 31.3 27.0-33.0 pg Mean Corpuscular Hemoglobin Concent 33.1 32.0-36.0 g/dL Red Cell Distribution Width 15.0 11.0-15.5 % Platelet Count 134 130-400 K/uL Mean Platelet Volume 11.1 H 7.5-10.5 fL Nucleated Red Blood Cells 0.0 0.0-0.19 % Sodium Level 141 136-145 mmol/L Potassium Level 4.0 3.5-5.1 mmol/L Chloride Level 106 101-111 mmol/L Carbon Dioxide Level 29 21-32 mmol/L Blood Urea Nitrogen 18 7-18 mg/dL Creatinine 1.0 0.5-1.3 mg/dL Glomerular Filtration Rate Calc 75 >90 mL/min Random Glucose 113 H 70-105 mg/dL Total Calcium 8.9 8.5-10.1 mg/dL Magnesium Level 2.10 1.80-2.40 mg/dL Total Bilirubin 1.0 0.2-1.0 mg/dL Aspartate Amino Transf (AST/SGOT) 21 10-37 U/L Alanine Aminotransferase (ALT/SGPT) 28 12-78 U/L Alkaline Phosphatase 70 50-136 U/L Total Protein 6.2 6.0-8.3 g/dL Albumin 3.2 L 3.5-5.0 g/dL Urine Color YELLOW YELLOW Urine Appearance CLEAR CLEAR Urine pH 5.0 5.0-8.0 Urine Specific [place] 1.030 1.001-1.031 Urine Protein NEGATIVE NEGATIVE mg/dL Urine Glucose (UA) >=1000 H NEGATIVE mg/dL Urine Ketones NEGATIVE NEGATIVE mg/dL Urine Occult Blood NEGATIVE NEGATIVE Urine Nitrate NEGATIVE NEGATIVE Urine Bilirubin NEGATIVE NEGATIVE mg/dL Urine Urobilinogen 0.2 0.2-1.0 mg/dL Urine Leukocyte Esterase NEGATIVE NEGATIVE Misael/uL Urine RBC 2-5 H 0-1 /HPF Urine WBC 0-1 0-1 /HPF Urine Bacteria None None Seen /HPF Current Medications Medications (Trade) Dose Ordered Sig/Johnnie Route PRN Reason Start Time Stop Time Status Last Admin Dose Admin Magnesium Sulfate 50 ml @ 0 mls/hr PROTOCOL PRN IV hypomagnesemia 02/08/25 15:00 03/10/25 14:59 Potassium Chloride 100 ml @ 100 mls/hr AD PRN IV POTASSIUM PROTOCOL 02/08/25 15:00 03/10/25 14:59 Potassium Chloride (K-Dur/Klor-Con 20meq) 20 meq AD PRN PO POTASSIUM PROTOCOL 02/08/25 15:00 03/10/25 14:59 Potassium Chloride (KCl 10% Elixir 20meq/15ml) 20 meq AD PRN PO POTASSIUM PROTOCOL 02/08/25 15:00 03/10/25 14:59 DIAGNOSTICS / RADIOLOGY: [ ] ASSESSMENT: Paroxysmal atrial flutter with intermittent RVR POA Hypertension Hyperlipidemia History of atrial fibrillation status post cardioversion history of chronic anticoagulation with Eliquis Advanced age PLAN: - patient to be monitored in the PCCU -in reference to atrial flutter. Patient's heart rate is currently in the 90s. We will observe for now. Obtain patient's home medications which will be reconciled once available -obtain echocardiogram -check TSH -we will request consultation with Cardiology -further orders per hospitalization course. Advanced Care Planning Which of the following were discussed: Hospice care: Yes __ No _x_ Therapeutic options: Yes __ No __ Advance directives: Yes __ No __ Other discussions: Discussed with who?: patient (Patient, family or surrogates) Voluntary nature of this service was explained to the patient? Yes _x_ No __ Amount of time spent: 20 minutes TASHA Chase MD, MD Feb 08, 2025 14:58
[2025-02-08] MEDS ORDERED: PoTASSium chl 10% ELIXIR 20MEQ 20 MEQ/15 ML UDCUP PO PRN (15:00)
[2025-02-08] MEDS ORDERED: MAGNESIUM 2GM PREMIX 50ML 50 ML IV PRN (15:00)
[2025-02-08 15:01] LABS: INR 1.07 (0.85-1.15)
--- NOTE | 2025-02-08 17:01 | NUR ---
DCP: HOME Pt and his Tammy Ulloa [phone] are [place] from [place] and live in [place] 5 months out of the year. Couple has a park model, no issues affording their homes. Pt is independent of all his self care, home management, driving. Uses no DME or in home care services. Pt has no local PCP, uses [facility] for rx needs. Denies dc needs and will return home at fl
--- NOTE | 2025-02-08 19:26 | CONS ---
Cardiology Consult Note Attending Nozzle Operator: Dr. Nathan Miller Primary Nozzle Operator: Dr. Breezy Mills Consulting Physician: Hospitalist Date of Service: 02/08/2025 Reason for Consult: Atrial flutter with RVR HPI: This is an 84y/o male with a past medical history of DM2, BPH, paroxysmal atrial fibrillation/flutter s/p flutter ablation, s/p DCCV, s/p PVI ablation on 05/12/2024, low normal LV systolic function (LVEF: 50-55% by echo done 04/02/2023), previous arrhythmia or alcohol induced CM, now with improved/normal LV systolic function, normal coronary arteries by LHC done on 09/11/2016, and obesity who presents with tachycardia of 1 day in duration. The patient states that when he checked his blood pressure in the morning, his HR was noted to be 150 bpm. The patient denied any active complaints or associated symptoms including headache, dizziness, syncope, chest pain, chest pressure, palpitations, shortness of breath, PND, orthopnea, abdominal pain, nausea, vomiting, weight gain, lower extremity swelling, diaphoresis, fever, or chills. Later that day, he had an appointment with his ENT, and upon having his vital signs checked, his HR remained > 100 bpm. The patient's , states that she called the [facility] in the morning after identifying his HR to 150 bpm and left a message for treatment recommendations regarding his HR, but after his follow up appointment with his ENT, which identified that the patient's HR remained elevated, they decided to come to the hospital for further evaluation and treatment. While in the ED, an ECG identified atrial flutter with RVR. Cardiology was consulted for treatment recommendation. PMH: Listed above PSH: Listed above FH: Noncontributory SH: Denies alcohol, tobacco, or illicit drug use. Allergies: Coded Allergies: No Known Drug Allergies (Unverified Allergy, Unknown, 03/27/23) Review of systems: General: Denies fever or chills HEENT: Denies changes in vision, earache or sore throat Neck: Denies pain or stiffness Cardio: As per the HPI Pulm: Denies SOB, coughing or wheezing GI: Denies abdominal pain, nausea, vomiting, diarrhea, or constipation. MSK: Denies decreased ROM or joint pain. Heme: Denies anemia, easy bruising, or bleeding. Neuro: Denies headache, dizziness, or syncope. Physical Exam: Vital Signs Date Time Temp Pulse Resp B/P (MAP) Pulse Ox O2 Delivery O2 Flow Rate FiO2 02/08/25 19:20 97.9 80 18 138/86 97 Room Air* 0 21 General: Alert and oriented. NAD HEENT: NC/AT. Oral mucosa is moist. Neck: No masses, JVD, or carotid bruits Lungs: NRD. SCM. B/L CTA. No wheezing, rales or rhonchi. Cardio: Regular rate, irregular rhythm. Abdomen: Soft. NT. ND. Normal active bowel sounds x 4 quadrants. Extremities: Diminished throughout. Neuro: CN II-XII were grossly intact. No focal deficits. Labs: Laboratory Tests Test 02/08/25 12:00 02/08/25 12:02 02/08/25 12:49 Range/Units Urine Color YELLOW YELLOW Urine Appearance CLEAR CLEAR Urine pH 5.0 5.0-8.0 Urine Specific [place] 1.030 1.001-1.031 Urine Protein NEGATIVE NEGATIVE mg/dL Urine Glucose (UA) >=1000 H NEGATIVE mg/dL Urine Ketones NEGATIVE NEGATIVE mg/dL Urine Occult Blood NEGATIVE NEGATIVE Urine Nitrate NEGATIVE NEGATIVE Urine Bilirubin NEGATIVE NEGATIVE mg/dL Urine Urobilinogen 0.2 0.2-1.0 mg/dL Urine Leukocyte Esterase NEGATIVE NEGATIVE Misael/uL Urine RBC 2-5 H 0-1 /HPF Urine WBC 0-1 0-1 /HPF Urine Bacteria None None Seen /HPF White Blood Count 9.3 4.8-10.8 K/uL Red Blood Count 5.04 4.50-6.20 MIL/uL Hemoglobin 15.8 14.0-18.0 g/dL Hematocrit 47.7 42-54 % Mean Corpuscular Volume 94.6 79-99 fL Mean Corpuscular Hemoglobin 31.3 27.0-33.0 pg Mean Corpuscular Hemoglobin Concent 33.1 32.0-36.0 g/dL Red Cell Distribution Width 15.0 11.0-15.5 % Platelet Count 134 130-400 K/uL Mean Platelet Volume 11.1 H 7.5-10.5 fL Nucleated Red Blood Cells 0.0 0.0-0.19 % Prothrombin Time 11.3 9.6-11.6 SEC Prothromb Time International Ratio 1.07 0.85-1.15 Activated Partial Thromboplast Time 28.8 26.3-35.5 SEC Sodium Level 141 136-145 mmol/L Potassium Level 4.0 3.5-5.1 mmol/L Chloride Level 106 101-111 mmol/L Carbon Dioxide Level 29 21-32 mmol/L Blood Urea Nitrogen 18 7-18 mg/dL Creatinine 1.0 0.5-1.3 mg/dL Glomerular Filtration Rate Calc 75 >90 mL/min Random Glucose 113 H 70-105 mg/dL Hemoglobin A1c 6.2 H 4.0-6.0 % Estimated Average Glucose (eAG) 131 H 70-126 mg/dL Total Calcium 8.9 8.5-10.1 mg/dL Magnesium Level 2.10 1.80-2.40 mg/dL Total Bilirubin 1.0 0.2-1.0 mg/dL Aspartate Amino Transf (AST/SGOT) 21 10-37 U/L Alanine Aminotransferase (ALT/SGPT) 28 12-78 U/L Alkaline Phosphatase 70 50-136 U/L Troponin I High Sensitivity 17 17 4-75 ng/L B-Type Natriuretic Peptide 81 0-100 pg/mL Total Protein 6.2 6.0-8.3 g/dL Albumin 3.2 L 3.5-5.0 g/dL Procalcitonin < 0.05 L 0.05-0.5 ng/mL Thyroid Stimulating Hormone (TSH) 1.65 # 0.36-3.74 uIU/mL Assessment: -Paroxysmal atrialfibrillation/flutter s/p flutter ablation, s/p DCCV, s/p PVI ablation on 05/12/2024 -DM2 -BPH -Low normal LV systolic function (LVEF: 50-55% by echo done 04/02/2023) -Previous arrhythmia or alcohol induced CM, now with improved/normal LV systolic function -Normal coronary arteries by LHC done on 09/11/2016 -Obesity Plan: 1. Paroxysmal atrialfibrillation/flutter s/p flutter ablation, s/p DCCV, s/p PVI ablation on 05/12/2024 -Substrate: Dilated atria -Inciting factor: Recent sinus infection -ECG 02/08/2025: Atrial flutter with RVR, RBBB, HR: 107 bpm -The patient will continue on metoprolol succinate 25 mg daily and Multaq 400 mg BID -We will keep the patient NPO after midnight and have the patient be evaluated by EP, Dr. Mills, for further treatment recommendations including possible DCCV +/- adjustment in antiarrhythmic or rate control therapy. -CHADS3 VASc score: 3 points. Continue Eliquis 5 mg BID. -Please keep the patient on continuous telemetry monitoring and maintain electrolytes within normal parameters. Thank you for this interesting consult and allowing us to participate in the care of your patient. This case was discussed with my Supervising Physician, Dr. Nathan Miller, and the above mentioned plan was formulated and agreed upon. -Consult Note written by Gail De La Rosa, MSN, [employer], AGACNP-BC 2. [] 3. [] GAIL DE LA ROSA Feb 08, 2025 19:26
[2025-02-08] MEDS: DRONEDARONE HYDROCHLORIDE 400 MG TABLET PO SCH (21:00)
[2025-02-08] MEDS: TIMOLOL MALEATE 0.5% 5 ML BOTTLE OU SCH (21:00)
--- NOTE | 2025-02-08 22:27 | NUR ---
REPORT GIVEN TO NURSE CANELA
[2025-02-08 23:50] VITALS: BP 106/70; PULSE 101; RESP 18; TEMP 98
[2025-02-08 23:51] VITALS: O2SAT 95
[2025-02-09] VITALS (8 sets, daily range): BP systolic 122–145; BP diastolic 74–81; PULSE 79–107; RESP 17–18; TEMP 97.5–98.3; O2SAT 95–96
[2025-02-09 04:14] LABS: IMMATURE GRANULOCYTE ABSOLUTE 0.02 K/uL (0-1); NUCLEATED RED BLOOD CELLS 0.0 % (0.0-0.19); PLATELET COUNT (AUTO) 122 K/uL (130-400); RED BLOOD CELL COUNT(AUTO) 4.58 MIL/uL (4.50-6.20); RED CELL DISTRIBUTION WIDTH 15.1 % (11.0-15.5); WHITE BLOOD COUNT (AUTO) 6.5 K/uL (4.8-10.8)
[2025-02-09 04:31] LABS: CREATININE 1.2 mg/dL (0.5-1.3); GLOMERULAR FILTR. RATE CALC 60.0 mL/min (>90); GLUCOSE,RANDOM 93.0 mg/dL (70-105); SODIUM SERUM 141.0 mmol/L (136-145); UREA NITROGEN, BLOOD 23.0 mg/dL (7-18)
[2025-02-09] MEDS: PoTASSium chloRIDE 20MEQ ER 20 MEQ ERTAB PO PRN (08:33)
[2025-02-09] MEDS: AMIOdarone 150MG/100ML BAG 100 ML IV ONE (09:00)
--- NOTE | 2025-02-09 09:07 | CONS ---
HPI: This is an 84-year-old male with a history of persistent atrial fibrillation status post cardioversion x2 with subsequent pulmonary vein isolation 05/14/2024, counter-clockwise atrial flutter status post CTI ablation 03/28/2023, history of nonischemic cardiomyopathy and normal coronary arteries by left heart catheterization in 2017. He was admitted 02/08/2025 due to recurrent atypical atrial flutter. His EKG on admission shows atypical atrial flutter with a ventricular rate of 107 beats per minute. His QT interval is 360 milliseconds with a corrected QT of 476 milliseconds. He is currently in atypical atrial flutter with ventricular rates in the 90s. He has a right bundle-branch block. His most recent echocardiogram 04/02/2023 shows an ejection fraction of 50-55% with stage II diastolic dysfunction, normal right ventricular systolic function, trace mitral valve regurgitation and trace tricuspid valve regurgitation. Chest x-ray shows two small radiopaque densities overlying the right humeral head, likely postsurgical, otherwise no consolidation or pleural effusion seen. White blood count 6.5, hemoglobin 14.1, hematocrit 43.2, platelets 122, creatinine 1.2, BUN 23, GFR 60, potassium 3.9, magnesium 2.10, TSH 1.65. Most recent blood pressure is 131/81. His antiarrhythmic drug history is as follows: He was propafenone in April 2023 prior to undergoing cardioversion 05/15/2023. Propafenone was discontinued in April 2024 due to ineffectiveness. He was loaded with IV amiodarone and underwent cardioversion 04/17/2024. He remained on amiodarone for one month after undergoing pulmonary vein isolation 05/14/2024. He was then transitioned to Multaq in June 2024. His AF burden has been increasing burden of around 2% in January 2025, now up to 30%. He has been having daily episodes of atrial fibrillation since 02/01/2025 lasting 2-8 hours. Yesterday he noted heart rates in the 100s to 150s in the morning upon waking. His heart rate remained above 100 which prompted his admission. He offers up no new cardiac complaints. Patient History: PAST MEDICAL HISTORY: As noted above. SOCIAL HISTORY: He is a nonsmoker. SURGICAL HISTORY: As noted above. Allergies: Coded Allergies: No Known Drug Allergies (Unverified Allergy, Unknown, 03/27/23) Vital Signs Vital Signs 02/08/25 02/09/25 23:51 08:09 Temp 97.5 Pulse 100 Resp 18 B/P (MAP) 131/81 Pulse Ox 96 O2 Delivery Room Air O2 Flow Rate 0 FiO2 21 Appearance: Well dev, well nourished Eyes: EOM Normal, Normal Conjuctivae/eyelid Ear/Nose/Mouth/Throat: Landmarks WNL Neck: Symmetric, trach midline Cardiovascular: Abnormal (irregular rhythm, tachycardic) Respiratory: Lungs clear Laboratory Tests Test 02/08/25 12:00 02/08/25 12:02 02/08/25 12:49 02/09/25 03:37 Range/Units Urine Color YELLOW YELLOW Urine Appearance CLEAR CLEAR Urine pH 5.0 5.0-8.0 Urine Specific [place] 1.030 1.001-1.031 Urine Protein NEGATIVE NEGATIVE mg/dL Urine Glucose (UA) >=1000 NEGATIVE mg/dL Urine Ketones NEGATIVE NEGATIVE mg/dL Urine Occult Blood NEGATIVE NEGATIVE Urine Nitrate NEGATIVE NEGATIVE Urine Bilirubin NEGATIVE NEGATIVE mg/dL Urine Urobilinogen 0.2 0.2-1.0 mg/dL Urine Leukocyte Esterase NEGATIVE NEGATIVE Misael/uL Urine RBC 2-5 0-1 /HPF Urine WBC 0-1 0-1 /HPF Urine Bacteria None None Seen /HPF White Blood Count 9.3 6.5 4.8-10.8 K/uL Red Blood Count 5.04 4.58 4.50-6.20 MIL/uL Hemoglobin 15.8 14.1 14.0-18.0 g/dL Hematocrit 47.7 43.2 42-54 % Mean Corpuscular Volume 94.6 94.3 79-99 fL Mean Corpuscular Hemoglobin 31.3 30.8 27.0-33.0 pg Mean Corpuscular Hemoglobin Concent 33.1 32.6 32.0-36.0 g/dL Red Cell Distribution Width 15.0 15.1 11.0-15.5 % Platelet Count 134 122 130-400 K/uL Mean Platelet Volume 11.1 11.3 7.5-10.5 fL Nucleated Red Blood Cells 0.0 0.0 0.0-0.19 % Prothrombin Time 11.3 9.6-11.6 SEC Prothromb Time International Ratio 1.07 0.85-1.15 Activated Partial Thromboplast Time 28.8 26.3-35.5 SEC Sodium Level 141 141 136-145 mmol/L Potassium Level 4.0 3.9 3.5-5.1 mmol/L Chloride Level 106 107 101-111 mmol/L Carbon Dioxide Level 29 26 21-32 mmol/L Blood Urea Nitrogen 18 23 7-18 mg/dL Creatinine 1.0 1.2 0.5-1.3 mg/dL Glomerular Filtration Rate Calc 75 60 >90 mL/min Random Glucose 113 93 70-105 mg/dL Hemoglobin A1c 6.2 4.0-6.0 % Estimated Average Glucose (eAG) 131 70-126 mg/dL Total Calcium 8.9 8.3 8.5-10.1 mg/dL Magnesium Level 2.10 1.80-2.40 mg/dL Total Bilirubin 1.0 0.2-1.0 mg/dL Aspartate Amino Transf (AST/SGOT) 21 10-37 U/L Alanine Aminotransferase (ALT/SGPT) 28 12-78 U/L Alkaline Phosphatase 70 50-136 U/L Troponin I High Sensitivity 17 17 4-75 ng/L B-Type Natriuretic Peptide 81 0-100 pg/mL Total Protein 6.2 6.0-8.3 g/dL Albumin 3.2 3.5-5.0 g/dL Procalcitonin < 0.05 0.05-0.5 ng/mL Thyroid Stimulating Hormone (TSH) 1.65 0.36-3.74 uIU/mL Immature Granulocyte % (Auto) 0.3 0-1 % Neutrophils (%) (Auto) 63.3 40.0-77.0 % Lymphocytes (%) (Auto) 24.2 21.0-51.0 % Monocytes (%) (Auto) 9.2 3.0-13.0 % Eosinophils (%) (Auto) 2.5 0.0-8.0 % Basophils (%) (Auto) 0.5 0.0-5.0 % Neutrophils # (Auto) 4.1 1.8-7.7 K/uL Lymphocytes # (Auto) 1.6 1.0-4.8 K/uL Monocytes # (Auto) 0.6 0.1-1.0 K/uL Eosinophils # (Auto) 0.16 0.00-0.70 K/uL Basophils # (Auto) 0.03 0.00-0.20 K/uL Absolute Immature Granulocyte (auto 0.02 0-1 K/uL ASSESSMENT: 1. Persistent atrial fibrillation/atypical atrial flutter. 2. History of typical atrial flutter status post CTI ablation in March 2023. 3. History of nonischemic cardiomyopathy. 4. Normal coronary arteries by [facility] in 2017. PLAN: Discussed with Dr. Mills. 1. He has persistent atrial fibrillation/atypical atrial flutter status post pulmonary vein isolation in May 2024. He has antiarrhythmic drug history is detailed above. At this point Multaq has failed to maintain sinus rhythm. 2. We discussed the following options: Transition to amiodarone followed by cardioversion in 24 hours if he remains in atrial flutter versus transitioning to dofetilide which require at least five doses prior to discharge. He favors amiodarone infusion followed by cardioversion if required. He was advised that we do not favor long-term use of amiodarone, however this may be a temporary measure if we plan redo catheter ablation versus alternative antiarrhythmic drug as an outpatient. 3. He is pending an echocardiogram to assess LVEF. 4. Continue Eliquis 5 mg twice daily. 5. Continue metoprolol succinate 25 mg once daily for rate control. 6. We will follow the patient. CHANDANA PINEDA Feb 09, 2025 09:07
--- NOTE | 2025-02-09 11:57 | PN ---
[facility] PROGRESS NOTE Date of Service: Feb 09, 2025 Time of Service: 11:54 SUBJECTIVE: 02/09 patient remains admitted to the PCU. At the time of my visit he is comfortably in bed, he is alert and oriented x3, denies dizziness, no headache, no blurry vision, no chest pain, no shortness a breath, no palpitations. Blood pressure 122/80, heart rate of 104, he is currently saturating normal on room air. Chest x-ray two small radiopaque densities overlying the right humeral head, likely post surgical. Echocardiogram pending to evaluate ejection fraction. Discussed with Cardiology, patient will be initiated on amiodarone drip. Patient is started on heart healthy diet. At the time of my visit the is at the bedside, patient completed course of antibiotics approximately 10 days for sinus infection, he is due for intervention on the left nasal/sinus area on February 23. REVIEW OF SYSTEMS CONSTITUTIONAL: Denies fevers, chills, or night sweats. No unintentional weight loss reported. NEUROLOGICAL: Denies headache, amaurosis fugax, motor weakness, sensory deficit, vertigo/spinning sensation, gait abnormalities, or tremors. ENT: No hearing loss, otalgia, otorrhea, rhinitis, rhinorrhea, hoarseness, or sore throat. CARDIOVASCULAR: Denies any exertional angina, dyspnea on exertion, orthopnea, paroxysmal nocturnal dyspnea, life-threatening arrhythmias, claudication. Positive for shortness of breath, palpitations PULMONARY: Denies any shortness of breath, cough, phlegm/sputum, hemoptysis, pleuritic chest pain. GASTROINTESTINAL: Denies any type of dysphagia to either liquids or solids. Denies nausea, vomiting, pyrosis, early satiety, abdominal pain, diarrhea, constipation, or changes in stool consistency or caliber. Denies coffee-ground emesis, hematemesis, hematochezia, or melanotic stools. GENITOURINARY: Denies frequency, urgency, nocturia, hematuria or incontinence (Storage/Irritative symptoms.) Low urinary stream, straining to void, urinary intermittency or hesitancy, splitting of the voiding stream, terminal dribbling. ENDOCRINOLOGIC: Denies polyuria, polydipsia, polyphagia or heat/cold intolerances. HEMATOLOGIC: Denies thrombophilia/previous clots, or coagulopathy/bleeding disorders. ONCOLOGIC: Denies personal history of malignancy. DERMATOLOGIC: Denies rashes or pruritus. PSYCHIATRIC: Denies any suicidal or homicidal ideation. Denies hallucinations. PHYSICAL EXAM GENERAL APPEARANCE: The patient is awake, alert, and oriented, in no acute cardiopulmonary distress. NEUROLOGICAL: Cranial nerves II-XII grossly intact. Motor is 5/5 in bilateral upper and lower extremities proximal to distal. No sensory deficits. HEENT: Face is symmetric. Pupils are equal and reactive. Extraocular movements are intact. NECK: Supple. No JVD. No thyromegaly. No submental, submandibular, pre- /postauricular, occipital or supraclavicular lymphadenopathy. CHEST: Normal chest expansion. No Telemetry. LUNGS: Absence of any rales, rhonchi or any wheezing. CARDIOVASCULAR: Regular. S1 and S2 normal. No appreciable rubs, murmurs or gallops. ABDOMEN: Soft, nontender, and nondistended. There is no rebound, voluntary guarding, or rigidity. : Deferred. No Denise. EXTREMITIES: 1+ pitting edema in the lower extremity bilaterally and not cyanotic. No clubbing. Good capillary refill. SKIN: No skin breakdown. Vital Signs (last 8hr) Date Time Temp Pulse Resp B/P (MAP) Pulse Ox O2 Delivery O2 Flow Rate FiO2 02/09/25 11:53 97.9 104 18 122/80 97 Room Air 02/09/25 08:09 97.5 100 18 131/81 96 Room Air LABS: Laboratory: Test 02/09/25 03:37 02/08/25 12:49 02/08/25 12:02 02/08/25 12:00 Range/Units White Blood Count 6.5 # 4.8-10.8 K/uL Red Blood Count 4.58 4.50-6.20 MIL/uL Hemoglobin 14.1 14.0-18.0 g/dL Hematocrit 43.2 42-54 % Mean Corpuscular Volume 94.3 79-99 fL Mean Corpuscular Hemoglobin 30.8 27.0-33.0 pg Mean Corpuscular Hemoglobin Concent 32.6 32.0-36.0 g/dL Red Cell Distribution Width 15.1 11.0-15.5 % Platelet Count 122 L 130-400 K/uL Mean Platelet Volume 11.3 H 7.5-10.5 fL Immature Granulocyte % (Auto) 0.3 0-1 % Neutrophils (%) (Auto) 63.3 40.0-77.0 % Lymphocytes (%) (Auto) 24.2 21.0-51.0 % Monocytes (%) (Auto) 9.2 3.0-13.0 % Eosinophils (%) (Auto) 2.5 0.0-8.0 % Basophils (%) (Auto) 0.5 0.0-5.0 % Neutrophils # (Auto) 4.1 1.8-7.7 K/uL Lymphocytes # (Auto) 1.6 1.0-4.8 K/uL Monocytes # (Auto) 0.6 0.1-1.0 K/uL Eosinophils # (Auto) 0.16 0.00-0.70 K/uL Basophils # (Auto) 0.03 0.00-0.20 K/uL Absolute Immature Granulocyte (auto 0.02 0-1 K/uL Nucleated Red Blood Cells 0.0 0.0-0.19 % Sodium Level 141 136-145 mmol/L Potassium Level 3.9 3.5-5.1 mmol/L Chloride Level 107 101-111 mmol/L Carbon Dioxide Level 26 21-32 mmol/L Blood Urea Nitrogen 23 H 7-18 mg/dL Creatinine 1.2 0.5-1.3 mg/dL Glomerular Filtration Rate Calc 60 >90 mL/min Random Glucose 93 70-105 mg/dL Total Calcium 8.3 L 8.5-10.1 mg/dL Troponin I High Sensitivity 17 4-75 ng/L Prothrombin Time 11.3 9.6-11.6 SEC Prothromb Time International Ratio 1.07 0.85-1.15 Activated Partial Thromboplast Time 28.8 26.3-35.5 SEC Hemoglobin A1c 6.2 H 4.0-6.0 % Estimated Average Glucose (eAG) 131 H 70-126 mg/dL Magnesium Level 2.10 1.80-2.40 mg/dL Total Bilirubin 1.0 0.2-1.0 mg/dL Aspartate Amino Transf (AST/SGOT) 21 10-37 U/L Alanine Aminotransferase (ALT/SGPT) 28 12-78 U/L Alkaline Phosphatase 70 50-136 U/L B-Type Natriuretic Peptide 81 0-100 pg/mL Total Protein 6.2 6.0-8.3 g/dL Albumin 3.2 L 3.5-5.0 g/dL Procalcitonin < 0.05 L 0.05-0.5 ng/mL Thyroid Stimulating Hormone (TSH) 1.65 # 0.36-3.74 uIU/mL Urine Color YELLOW YELLOW Urine Appearance CLEAR CLEAR Urine pH 5.0 5.0-8.0 Urine Specific [place] 1.030 1.001-1.031 Urine Protein NEGATIVE NEGATIVE mg/dL Urine Glucose (UA) >=1000 H NEGATIVE mg/dL Urine Ketones NEGATIVE NEGATIVE mg/dL Urine Occult Blood NEGATIVE NEGATIVE Urine Nitrate NEGATIVE NEGATIVE Urine Bilirubin NEGATIVE NEGATIVE mg/dL Urine Urobilinogen 0.2 0.2-1.0 mg/dL Urine Leukocyte Esterase NEGATIVE NEGATIVE Misael/uL Urine RBC 2-5 H 0-1 /HPF Urine WBC 0-1 0-1 /HPF Urine Bacteria None None Seen /HPF Current Medications Medications (Trade) Dose Ordered Sig/Johnnie Route PRN Reason Start Time Stop Time Status Last Admin Dose Admin Amiodarone HCl 150 mg/Dextrose 103 ml @ 618 mls/hr ONCE IV 02/09/25 10:00 02/09/25 09:50 DC Amiodarone HCl 360 mg/Dextrose 207.2 ml @ 33.3 mls/hr AD IV 02/09/25 10:00 02/09/25 09:49 DC Amiodarone HCl 540 mg/Dextrose 310.8 ml @ 16.7 mls/hr [id number] IV 02/09/25 16:15 03/11/25 16:14 Amiodarone HCL/ Dextrose 200 ml @ 33.333 mls/ hr PROTOCOL IV 02/09/25 10:15 03/11/25 10:14 Apixaban (EliquIS) 5 mg BID PO 02/08/25 21:00 03/10/25 20:59 02/09/25 09:31 5 MG Atorvastatin Calcium (LIPItor 20MG) 20 mg HS PO 02/08/25 21:00 03/10/25 20:59 Dronedarone (Multaq) 400 mg BID PO 02/08/25 21:00 02/09/25 08:27 DC Magnesium Sulfate 50 ml @ 0 mls/hr PROTOCOL PRN IV hypomagnesemia 02/08/25 15:00 03/10/25 14:59 Metoprolol Succinate (TopROL XL) 25 mg DAILY PO 02/09/25 09:00 03/11/25 08:59 02/09/25 09:30 25 MG Metoprolol Tartrate (loprESSOR) 25 mg BID PO 02/08/25 21:00 02/08/25 16:35 DC Potassium Chloride 100 ml @ 100 mls/hr AD PRN IV POTASSIUM PROTOCOL 02/08/25 15:00 03/10/25 14:59 Potassium Chloride (K-Dur/Klor-Con 20meq) 20 meq AD PRN PO POTASSIUM PROTOCOL 02/08/25 15:00 03/10/25 14:59 02/09/25 08:33 20 MEQ Potassium Chloride (KCl 10% Elixir 20meq/15ml) 20 meq AD PRN PO POTASSIUM PROTOCOL 02/08/25 15:00 03/10/25 14:59 Tamsulosin HCl (FloMAX) 0.4 mg HS PO 02/08/25 21:00 03/10/25 20:59 Timolol Maleate (Timoptic) 1 DROP OU BID OU 02/08/25 21:00 03/10/25 20:59 02/09/25 09:32 1 ML DIAGNOSTICS / RADIOLOGY: [ ] ASSESSMENT: Paroxysmal atrial flutter with intermittent RVR POA Hypertension Hyperlipidemia History of atrial fibrillation status post cardioversion history of chronic anticoagulation with Eliquis Advanced age Recent sinus infection (completed course of oral antibiotic treatment) PLAN: patient remains admitted to the PCU. At the time of my visit he is comfortably in bed, he is alert and oriented x3, denies dizziness, no headache, no blurry vision, no chest pain, no shortness a breath, no palpitations. Blood pressure 122/80, heart rate of 104, he is currently saturating normal on room air. Chest x-ray two small radiopaque densities overlying the right humeral head, likely post surgical. Echocardiogram pending to evaluate ejection fraction. Discussed with Cardiology, patient will be initiated on amiodarone drip. Patient is started on heart healthy diet. At the time of my visit the is at the bedside, patient completed course of antibiotics approximately 10 days for sinus infection, he is due for intervention on the left nasal/sinus area on February 23. NEURO: Minimize central acting medications as possible. Fall Precautions. Well lighted room through the day and minimize interruptions through the night to prevent acute delirium. PULMONARY: Supplemental 02 as needed BiPAP as necessary, for respiratory distress Titrate Fio2 to keep Spo2 > or = 90% DuoNebs and CPT as needed IS hourly while awake for pulmonary hygiene prn Out of bed to chair as tolerated Maintain aspiration precautions at all times CARDIOVASCULAR: Follow hemodynamics. Vital signs per facility protocol GI & NUTRITION: Continue nutritional support Aspirations precautions Prokinetic agents and laxatives as needed KIDNEYS & ELECTROLYTES: Strict monitoring of intake and output Daily weights Avoid nephrotoxic agents Monitor electrolytes and replace as needed Goal urine output of 30mL/hr or 0.5mL/kg/hr Medications to be dosed according to renal function. Avoid contrast if possible ENDOCRINE: Maintain blood glucose between 100-180 at all times. Insulin sliding scale for blood glucose management Hypoglycemia and hyperglycemia protocol in place INFECTIOUS DISEASE: Trend temperature, WBC and procalcitonin level Follow cultures, deescalate antibiotics as soon as possible. Panculture if new onset fever HEMATOLOGY & COAGULATION: Monitor H&H. Keep Hgb > 7 Transfuse 1 unit of PRBC for Hgb < 7 Transfuse 1 pack of platelets of platelets < 20, 000 Watch for any signs and symptoms of bleeding SKIN: Pressure ulcer prevention per facility protocol Specialty mattress as needed ORTHO/REHAB Continue PT/OT PRN: MEDICATIONS Tylenol 650 mg po every 4 hrs for fever zofran 4 mg IV every 6 hrs for n/v Hydralazine 5 mg IV every 4 hrs systolic pressure > 160 bowel regiment: lactulose 20 gm PO BID PRN constipation Supportive measures: Continue GI and DVT prophylaxis Disposition: Pending improvement in clinical condition All questions answered time spent: > 35 min SRINIVAS FERREIRA MD Feb 09, 2025 11:57
[2025-02-09] MEDS: AMIODARONE 360MG/200ML BAG 200 ML IV SCH (12:23)
--- NOTE | 2025-02-09 20:08 | HMCSR ---
APPROVED REPORT EXAM: Two-dimensional and M-mode echocardiogram with Doppler and color Doppler. INDICATION ICD: Atrial Flutter, assess for congestive heart failure 2D Dimensions RVDd 3.9 cm LVEF(%) 30.5 (>50%) LVED Vol(simp.) 121.0 mL IVSd 0.8 (0.7-1.1cm) FS(%) 15 % LVES Vol(simp.) 70.0 mL LVDd 5.5 (3.8-5.6cm) LA (2D) 4.5 (1.6-4.0cm) LVEF(%, simp.) 42 % PWd 1.0 (0.7-1.1cm) Ao Root(2D) 3.4 (2.0-3.7cm) LA ESV INDEX (BP) 36.63 mL/m2 IVSs 1.0 cm LVOT diam 2.3 (1.8-2.4cm) LVDs 4.7 (2.5-4.0cm) IVC diam 2.3 cm PWs 1.2 cm Deformation Strain Apical 4 -10.2 % Apical 2 -11.8 % Apical 3 -11.3 % Global Strain -11.1 % M-Mode Dimensions EPSS 0.5 cm LA (MM) 5.5 (1.6-4.0cm) Ao Root(MM) 3.4 (2.0-3.7cm) Aortic Valve AoV Vmax 1.1 m/s Ao Peak GR 4.7 mmHg LVOT Vmax 0.6 m/s AoV VTI 0.2 m Ao Mean GR 2.9 mmHg LVOT VTI 0.11 m ELBA (VMAX) 2.50 cm2 Al P1/2T 853 ms ELBA (VTI) 2.7 cm2 Mitral Valve MV E Vmax 95.1 cm/s DECEL Time 125 ms P 1/2 T 60 ms MVA (PHT) 3.7 cm2 TDI E/E' Medial 13.5 E/E' Lateral 13.6 Medial E' Peak V 7.06 cm/s Lateral E' Peak V 7.00 cm/s Pulmonary Valve PV Vmax 1.0 m/s PV Mean GR 2.3 mmHg PV Peak GR 3.7 mmHg Tricuspid Valve TR Vmax 2.4 m/s RAP (EST) 3 mmHg RVSP 26.0 mmHg TR Peak GR 23.0 mmHg Left Ventricle The left ventricle is normal size. GLS -11.0%. Basal posterior-lateral akinesis, inferolateral severe hypokinesis. There is normal left ventricular wall thickness. LVEF is 40-45%. The left ventricular diastolic function is normal. Right Ventricle The right ventricle is normal size. Right ventricular systolic function is borderline reduced. Atria The left atrium is borderline dilated. The right atrium is mildly dilated. Aortic Valve Aortic valve is trileaflet, mildly thickened and opens well. Trace aortic regurgitation is present. There is no aortic valvular stenosis. Mitral Valve The mitral valve is normal in structure. There is trace mitral valve regurgitation noted. There is no mitral valve stenosis. Tricuspid Valve The tricuspid valve is normal in structure. There is trace tricuspid valve regurgitation noted. Pulmonic Valve The pulmonary valve is normal in structure. There is no pulmonic valvular regurgitation. Great Vessels The aortic root is normal in size. The IVC is normal in size and collapses >50% with inspiration. Pericardium There is no pericardial effusion. Other Information Quality : Technically difficult study due to body habitus Conclusion There is normal left ventricular wall thickness. GLS -11.0%. Basal posterior-lateral akinesis, inferolateral severe hypokinesis. LVEF is 40-45%. The left ventricular diastolic function is normal. Aortic valve is trileaflet, mildly thickened and opens well. There is trace mitral valve regurgitation noted. There is no pericardial effusion.
[2025-02-10 03:28] VITALS: BP 130/73; PULSE 88; RESP 16; TEMP 97.8
[2025-02-10 03:55] LABS: NUCLEATED RED BLOOD CELLS 0.0 % (0.0-0.19); PLATELET COUNT (AUTO) 128.0 K/uL (130-400); RED BLOOD CELL COUNT(AUTO) 4.54 MIL/uL (4.50-6.20); RED CELL DISTRIBUTION WIDTH 15.3 % (11.0-15.5); WHITE BLOOD COUNT (AUTO) 8.1 K/uL (4.8-10.8)
[2025-02-10 04:19] LABS: ASPARTATE AMINOTRANSFERASE 17.0 U/L (10-37); CREATININE 1.2 mg/dL (0.5-1.3); GLOMERULAR FILTR. RATE CALC 60.0 mL/min (>90); GLUCOSE,RANDOM 124.0 mg/dL (70-105); SODIUM SERUM 140.0 mmol/L (136-145); TOTAL PROTEIN, SERUM 5.2 g/dL (6.0-8.3); UREA NITROGEN, BLOOD 25.0 mg/dL (7-18)
[2025-02-10 07:43] VITALS: BP 139/48; PULSE 50; RESP 18; TEMP 97.5
[2025-02-10 08:00] VITALS: O2SAT 96
--- NOTE | 2025-02-10 09:03 | PN ---
This is an 84-year-old male with a history of persistent atrial fibrillation status post cardioversion x2 with subsequent pulmonary vein isolation 05/14/2024, counter-clockwise atrial flutter status post CTI ablation 03/28/2023, history of nonischemic cardiomyopathy and normal coronary arteries by left heart catheterization in 2017. He was admitted 02/08/2025 due to recurrent atypical atrial flutter. He remains in atypical atrial flutter with ventricular rates in the 100s. Yesterday he was started on amiodarone infusion and will be transitioned to p.o. amiodarone 200 mg once daily. He is pending cardioversion this morning. He underwent echocardiogram 02/09/2025 which shows an ejection fraction of 40- 45% with basal posterior-lateral akinesis, inferolateral severe hypokinesis, borderline dilated left atrium, trace aortic valve, mitral valve and tricuspid valve regurgitation. This is in contrast to an ejection fraction 50-55% in March 2023. White blood count 8.1, hemoglobin 14.2, hematocrit 43.0, platelets 128, creatinine 1.2, potassium 4.4, magnesium 2.0, TSH 1.65. His most recent blood pressure is 139/48. On exam, he is in no acute distress, irregular rhythm, lungs are clear to auscultation bilaterally, no lower extremity edema is noted. ASSESSMENT: 1. Persistent atrial fibrillation/atypical atrial flutter. 2. History of typical atrial flutter status post CTI ablation in March 2023. 3. History of nonischemic cardiomyopathy. 4. Normal coronary arteries by [facility] in 2017. PLAN: Discussed with Dr. Mills. 1. He remains in atypical atrial flutter with a ventricular rates in the 100s. He was started on amiodarone infusion yesterday and will undergo cardioversion this morning. 2. We will transition to amiodarone 200 mg once daily. 3. Discontinue metoprolol succinate as resting heart rate in sinus rhythm is typically in the 50s to 60s. 4. Continue Eliquis 5 mg twice daily. 5. He was found to have an LVEF of 40-45% which is likely tachycardia mediated. Recommend repeat echocardiogram at least 4-6 weeks after sinus rhythm has been restored. 6. Anticipate discharge home after cardioversion. Vitals/Labs Vital Signs Date Time Temp Pulse Resp B/P (MAP) Pulse Ox O2 Delivery O2 Flow Rate FiO2 02/10/25 07:43 97.5 50 18 139/48 96 Room Air 21 02/09/25 20:00 0 Laboratory Tests 02/10/25 03:23 CHANDANA PINEDA PAC Feb 10, 2025 09:03
[2025-02-10 11:32] VITALS: BP 133/72; PULSE 66; RESP 18; TEMP 97.9
[2025-02-10] MEDS ORDERED: LIDOCAINE PF 100MG/5ML (2%) SYRINGE 5ML ONE (13:01)
[2025-02-10] MEDS ORDERED: 0.9%NACL 10ML VIAL ONE (13:02)
--- NOTE | 2025-02-10 13:04 | PN ---
[facility] PROGRESS NOTE Date of Service: Feb 10, 2025 Time of Service: 13:03 SUBJECTIVE: 02/09 patient remains admitted to the PCU. At the time of my visit he is comfortably in bed, he is alert and oriented x3, denies dizziness, no headache, no blurry vision, no chest pain, no shortness a breath, no palpitations. Blood pressure 122/80, heart rate of 104, he is currently saturating normal on room air. Chest x-ray two small radiopaque densities overlying the right humeral head, likely post surgical. Echocardiogram pending to evaluate ejection fraction. Discussed with Cardiology, patient will be initiated on amiodarone drip. Patient is started on heart healthy diet. At the time of my visit the is at the bedside, patient completed course of antibiotics approximately 10 days for sinus infection, he is due for intervention on the left nasal/sinus area on February 23. 02/10 patient remains admitted to the PCU. Comfortably bed, alert oriented x3. Patient is started on amiodarone previously, now on amiodarone 200 mg p.o. daily. Multaq has been discontinued. Patient evaluated by Cardiology, possible cardioversion today. at bedside, updated, all questions answered. Agreed and understood the information provided. Possible home today after cardioversi on pending further recommendations by apartment leasing agent. REVIEW OF SYSTEMS CONSTITUTIONAL: Denies fevers, chills, or night sweats. No unintentional weight loss reported. NEUROLOGICAL: Denies headache, amaurosis fugax, motor weakness, sensory deficit, vertigo/spinning sensation, gait abnormalities, or tremors. ENT: No hearing loss, otalgia, otorrhea, rhinitis, rhinorrhea, hoarseness, or sore throat. CARDIOVASCULAR: Denies any exertional angina, dyspnea on exertion, orthopnea, paroxysmal nocturnal dyspnea, life-threatening arrhythmias, claudication. Positive for shortness of breath, palpitations PULMONARY: Denies any shortness of breath, cough, phlegm/sputum, hemoptysis, pleuritic chest pain. GASTROINTESTINAL: Denies any type of dysphagia to either liquids or solids. Denies nausea, vomiting, pyrosis, early satiety, abdominal pain, diarrhea, constipation, or changes in stool consistency or caliber. Denies coffee-ground emesis, hematemesis, hematochezia, or melanotic stools. GENITOURINARY: Denies frequency, urgency, nocturia, hematuria or incontinence (Storage/Irritative symptoms.) Low urinary stream, straining to void, urinary intermittency or hesitancy, splitting of the voiding stream, terminal dribbling. ENDOCRINOLOGIC: Denies polyuria, polydipsia, polyphagia or heat/cold intolerances. HEMATOLOGIC: Denies thrombophilia/previous clots, or coagulopathy/bleeding disorders. ONCOLOGIC: Denies personal history of malignancy. DERMATOLOGIC: Denies rashes or pruritus. PSYCHIATRIC: Denies any suicidal or homicidal ideation. Denies hallucinations. PHYSICAL EXAM GENERAL APPEARANCE: The patient is awake, alert, and oriented, in no acute c ardiopulmonary distress. NEUROLOGICAL: Cranial nerves II-XII grossly intact. Motor is 5/5 in bilateral upper and lower extremities proximal to distal. No sensory deficits. HEENT: Face is symmetric. Pupils are equal and reactive. Extraocular movements are intact. NECK: Supple. No JVD. No thyromegaly. No submental, submandibular, pre- /postauricular, occipital or supraclavicular lymphadenopathy. CHEST: Normal chest expansion. No Telemetry. LUNGS: Absence of any rales, rhonchi or any wheezing. CARDIOVASCULAR: Regular. S1 and S2 normal. No appreciable rubs, murmurs or gallops. ABDOMEN: Soft, nontender, and nondistended. There is no rebound, voluntary guarding, or rigidity. : Deferred. No Denise. EXTREMITIES: 1+ pitting edema in the lower extremity bilaterally and not cyanotic. No clubbing. Good capillary refill. SKIN: No skin breakdown. Vital Signs (last 8hr) Date Time Temp Pulse Resp B/P (MAP) Pulse Ox O2 Delivery O2 Flow Rate FiO2 02/10/25 11:32 97.9 66 18 133/72 95 Room Air 21 02/10/25 07:43 97.5 50 18 139/48 96 Room Air 21 LABS: Laboratory: Test 02/10/25 03:23 02/09/25 03:37 Range/Units White Blood Count 8.1 4.8-10.8 K/uL Red Blood Count 4.54 4.50-6.20 MIL/uL Hemoglobin 14.2 14.0-18.0 g/dL Hematocrit 43.0 42-54 % Mean Corpuscular Volume 94.7 79-99 fL Mean Corpuscular Hemoglobin 31.3 27.0-33.0 pg Mean Corpuscular Hemoglobin Concent 33.0 32.0-36.0 g/dL Red Cell Distribution Width 15.3 11.0-15.5 % Platelet Count 128 L 130-400 K/uL Mean Platelet Volume 11.1 H 7.5-10.5 fL Nucleated Red Blood Cells 0.0 0.0-0.19 % Sodium Level 140 136-145 mmol/L Potassium Level 4.4 3.5-5.1 mmol/L Chloride Level 107 101-111 mmol/L Carbon Dioxide Level 29 21-32 mmol/L Blood Urea Nitrogen 25 H 7-18 mg/dL Creatinine 1.2 0.5-1.3 mg/dL Glomerular Filtration Rate Calc 60 >90 mL/min Random Glucose 124 H 70-105 mg/dL Total Calcium 8.5 8.5-10.1 mg/dL Magnesium Level 2.00 1.80-2.40 mg/dL Total Bilirubin 0.6 0.2-1.0 mg/dL Aspartate Amino Transf (AST/SGOT) 17 10-37 U/L Alanine Aminotransferase (ALT/SGPT) 23 12-78 U/L Alkaline Phosphatase 55 50-136 U/L Total Protein 5.2 L 6.0-8.3 g/dL Albumin 2.5 L 3.5-5.0 g/dL Immature Granulocyte % (Auto) 0.3 0-1 % Neutrophils (%) (Auto) 63.3 40.0-77.0 % Lymphocytes (%) (Auto) 24.2 21.0-51.0 % Monocytes (%) (Auto) 9.2 3.0-13.0 % Eosinophils (%) (Auto) 2.5 0.0-8.0 % Basophils (%) (Auto) 0.5 0.0-5.0 % Neutrophils # (Auto) 4.1 1.8-7.7 K/uL Lymphocytes # (Auto) 1.6 1.0-4.8 K/uL Monocytes # (Auto) 0.6 0.1-1.0 K/uL Eosinophils # (Auto) 0.16 0.00-0.70 K/uL Basophils # (Auto) 0.03 0.00-0.20 K/uL Absolute Immature Granulocyte (auto 0.02 0-1 K/uL Current Medications Medications (Trade) Dose Ordered Sig/Johnnie Route PRN Reason Start Time Stop Time Status Last Admin Dose Admin Amiodarone HCl (pacERONE 200MG) 200 mg DAILY PO 02/10/25 09:00 03/12/25 08:59 02/10/25 09:52 200 MG Amiodarone HCl 150 mg/Dextrose 103 ml @ 618 mls/hr ONCE IV 02/09/25 10:00 02/09/25 09:50 DC Amiodarone HCl 360 mg/Dextrose 207.2 ml @ 33.3 mls/hr AD IV 02/09/25 10:00 02/09/25 09:49 DC Amiodarone HCl 540 mg/Dextrose 310.8 ml @ 16.7 mls/hr [id number] IV 02/09/25 16:15 03/11/25 16:14 02/09/25 16:54 16.7 MLS/HR Amiodarone HCL/ Dextrose 200 ml @ 33.333 mls/ hr PROTOCOL IV 02/09/25 10:15 02/09/25 16:56 DC 02/09/25 12:23 33.333 MLS/HR Apixaban (EliquIS) 5 mg BID PO 02/08/25 21:00 03/10/25 20:59 02/10/25 09:52 5 MG Atorvastatin Calcium (LIPItor 20MG) 20 mg HS PO 02/08/25 21:00 03/10/25 20:59 02/09/25 21:54 20 MG Dronedarone (Multaq) 400 mg BID PO 02/08/25 21:00 02/09/25 08:27 DC Magnesium Sulfate 50 ml @ 0 mls/hr PROTOCOL PRN IV hypomagnesemia 02/08/25 15:00 03/10/25 14:59 Metoprolol Succinate (TopROL XL) 25 mg DAILY PO 02/09/25 09:00 02/10/25 08:52 DC 02/09/25 09:30 25 MG Metoprolol Tartrate (loprESSOR) 25 mg BID PO 02/08/25 21:00 02/08/25 16:35 DC Potassium Chloride 100 ml @ 100 mls/hr AD PRN IV POTASSIUM PROTOCOL 02/08/25 15:00 03/10/25 14:59 Potassium Chloride (K-Dur/Klor-Con 20meq) 20 meq AD PRN PO POTASSIUM PROTOCOL 02/08/25 15:00 03/10/25 14:59 02/09/25 08:33 20 MEQ Potassium Chloride (KCl 10% Elixir 20meq/15ml) 20 meq AD PRN PO POTASSIUM PROTOCOL 02/08/25 15:00 03/10/25 14:59 Tamsulosin HCl (FloMAX) 0.4 mg HS PO 02/08/25 21:00 03/10/25 20:59 02/09/25 21:53 0.4 MG Timolol Maleate (Timoptic) 1 DROP OU BID OU 02/08/25 21:00 03/10/25 20:59 02/10/25 09:54 1 ML DIAGNOSTICS / RADIOLOGY: [ ] ASSESSMENT: Paroxysmal atrial flutter with intermittent RVR POA Hypertension Hyperlipidemia History of atrial fibrillation status post cardioversion history of chronic anticoagulation with Eliquis Advanced age Recent sinus infection (completed course of oral antibiotic treatment) PLAN: patient remains admitted to the PCU. Comfortably bed, alert oriented x3. Patient is started on amiodarone previously, now on amiodarone 200 mg p.o. daily. Multaq has been discontinued. Patient evaluated by Cardiology, possible cardioversion today. at bedside, updated, all questions answered. Agreed and understood the information provided. Possible home today after cardioversion pending further recommendations by apartment leasing agent. NEURO: Minimize central acting medications as possible. Fall Precautions. Well lighted room through the day and minimize interruptions through the night to prevent acute delirium. PULMONARY: Supplemental 02 as needed BiPAP as necessary, for respiratory distress Titrate Fio2 to keep Spo2 > or = 90% DuoNebs and CPT as needed IS hourly while awake for pulmonary hygiene prn Out of bed to chair as tolerated Maintain aspiration precautions at all times CARDIOVASCULAR: Follow hemodynamics. Vital signs per facility protocol GI & NUTRITION: Continue nutritional support Aspirations precautions Prokinetic agents and laxatives as needed KIDNEYS & ELECTROLYTES: Strict monitoring of intake and output Daily weights Avoid nephrotoxic agents Monitor electrolytes and replace as needed Goal urine output of 30mL/hr or 0.5mL/kg/hr Medications to be dosed according to renal function. Avoid contrast if possible ENDOCRINE: Maintain blood glucose between 100-180 at all times. Insulin sliding scale for blood glucose management Hypoglycemia and hyperglycemia protocol in place INFECTIOUS DISEASE: Trend temperature, WBC and procalcitonin level Follow cultures, deescalate antibiotics as soon as possible. Panculture if new onset fever HEMATOLOGY & COAGULATION: Monitor H&H. Keep Hgb > 7 Transfuse 1 unit of PRBC for Hgb < 7 Transfuse 1 pack of platelets of platelets < 20, 000 Watch for any signs and symptoms of bleeding SKIN: Pressure ulcer prevention per facility protocol Specialty mattress as needed ORTHO/REHAB Continue PT/OT PRN: MEDICATIONS Tylenol 650 mg po every 4 hrs for fever zofran 4 mg IV every 6 hrs for n/v Hydralazine 5 mg IV every 4 hrs systolic pressure > 160 bowel regiment: lactulose 20 gm PO BID PRN constipation Supportive measures: Continue GI and DVT prophylaxis Disposition: Pending improvement in clinical condition All questions answered time spent: > 35 min SRINIVAS FERREIRA MD Feb 10, 2025 13:04
--- NOTE | 2025-02-10 13:08 | DS ---
Discharge Summary Hospital Course Summary: THE PATIENT INITIALLY ADMITTED TO THE HOSPITAL 02/08/2025 WITH THE FOLLOWING HISTORY OF THE PRESENT ILLNESS 84 Year old male with past medical history of atrial fibrillation status post ablation, hypertension, hyperlipidemia presented to the hospital secondary to elevated blood pressure. Patient states he is currently being evaluated for sinusitis by his ENT. He was going to be scheduled for outpatient sinus surgery in February. He went ENT clinic very was noted to have a elevated blood pressure with systolics in the 160s. During the time they also noted that his heart rate was elevated. Patient denied any palpitations, chest pain, shortness of breath, abdominal pain, nausea, vomiting. He does have symptoms secondary to sinusitis but denies any breathing difficulties. Denied any fever, chills, cough. He is able to walk off of mild but gets intermittent episodes of shortness of breath. He has also noted lower extremity pitting edema. He denied any orthopnea, PND. He is unable to recall the medications he takes at home. He did state that he took his medications in the morning today. Does have a loop recorder present. Labs were notable for white count of 9.3, hemoglobin was 15.8, platelet count was 134 K, sodium was 141, potassium was 4.0, creatinine was 1.0, blood glucose was 113 Chest x-ray showed no acute infiltrates. When seen at bedside patient's systolic blood pressure was in the 130s, heart heart rate was noted to be in the 90s to high 100s. Patient was saturating 96% on room air HOSPITAL COURSE 02/09 patient remains admitted to the PCU. At the time of my visit he is comfortably in bed, he is alert and oriented x3, denies dizziness, no headache, no blurry vision, no chest pain, no shortness a breath, no palpitations. Blood pressure 122/80, heart rate of 104, he is currently saturating normal on room air. Chest x-ray two small radiopaque densities overlying the right humeral hea d, likely post surgical. Echocardiogram pending to evaluate ejection fraction. Discussed with Cardiology, patient will be initiated on amiodarone drip. Patient is started on heart healthy diet. At the time of my visit the is at the bedside, patient completed course of antibiotics approximately 10 days for sinus infection, he is due for intervention on the left nasal/sinus area on February 23. 02/10 patient remains admitted to the PCU. Comfortably bed, alert oriented x3. Patient is started on amiodarone previously, now on amiodarone 200 mg p.o. daily. Multaq has been discontinued. Patient evaluated by Cardiology, possible cardioversion today. at bedside, updated, all questions answered. Agreed and understood the information provided. Possible home today after cardioversion pending further recommendations by cloud solutions architect. PHYSICAL EXAM GENERAL APPEARANCE: The patient is awake, alert, and oriented, in no acute cardiopulmonary distress. NEUROLOGICAL: Cranial nerves II-XII grossly intact. Motor is 5/5 in bilateral upper and lower extremities proximal to distal. No sensory deficits. HEENT: Face is symmetric. Pupils are equal and reactive. Extraocular movements are intact. NECK: Supple. No JVD. No thyromegaly. No submental, submandibular, pre- /postauricular, occipital or supraclavicular lymphadenopathy. CHEST: Normal chest expansion. No Telemetry. LUNGS: Absence of any rales, rhonchi or any wheezing. CARDIOVASCULAR: Regular. S1 and S2 normal. No appreciable rubs, murmurs or gallops. ABDOMEN: Soft, nontender, and nondistended. There is no rebound, voluntary guarding, or rigidity. : Deferred. No Denise. EXTREMITIES: No clubbing. Good capillary refill. SKIN: No skin breakdown. Manager Decision Support(s): CARDIOLOGY SERVICES Assessment/Plan: FINAL DIAGNOSIS Paroxysmal atrial flutter with intermittent RVR POA Hypertension Hyperlipidemia History of atrial fibrillation status post cardioversion history of chronic anticoagulation with Eliquis Advanced age Recent sinus infection (completed course of oral antibiotic treatment) Discharge Instructions: PATIENT TO BE DISCHARGED HOME, RETURN TO THE HOSPITAL IF CONDITION CHANGES. Home Medications: Reported Medications Dronedarone Hydrochloride (Multaq) 400 Mg Tablet, 400 MG PO BID, TAB 02/08/25 Metoprolol Succinate (Metoprolol Succinate) 25 Mg Tab.er.24h, 25 MG PO DAILY, TAB 02/08/25 Timolol Maleate (Timoptic 0.5% Ophth Soln) 0.5 % Opsol, 1 DROP OU BID 04/30/23 Vit A/Vit C/Vit E/Zinc/Copper (Preservision Areds Tablet) 2,148-113 Tablet, 1 EACH PO BID, TAB 03/27/23 Apixaban (Eliquis) 5 Mg Tablet, 5 MG PO BID, TAB 03/27/23 Dapagliflozin Propanediol (Farxiga) 5 Mg Tablet, 5 MG PO AM, TAB 03/27/23 Tamsulosin HCl (Flomax) 0.4 Mg Cap.er.24h, 0.4 MG PO HS, CAPSULE.DR 03/27/23 Atorvastatin Calcium (Atorvastatin Calcium) 20 Mg Tablet, 20 MG PO HS, TAB 03/27/23 Discontinued Reported Medications Metoprolol Succinate (Metoprolol Succinate) 25 Mg Tab.er.24h, 12.5 MG PO DAILY, TAB 03/27/23 Discontinued Scripts Sucralfate (Sucralfate) 1 Gram Tablet, 1 TAB PO QID for 15 Days, #60 TAB 0 Refills MUST DISSOLVE IN WATER DO NOT CRUSH Prov:JAZMIN MASSEY MD 05/12/24 Pantoprazole Sodium (Protonix) 40 Mg Ectab, 1 TAB PO DAILY, #15 TAB Prov:JAZMIN MASSEY MD 05/12/24 Amiodarone HCl (Amiodarone HCl) 200 Mg Tablet, 1 TAB PO BID for 30 Days, #60 TAB 3 Refills Prov:JAZMIN MASSEY MD 04/17/24 Time spent arranging discharge: 31-60 minutes SRINIVAS FERREIRA MD Feb 10, 2025 13:08
--- NOTE | 2025-02-10 13:27 | NUR ---
DR MASSEY PERFORMED A CARDIOVERSION AT BEDSIDE. ANESTHESIA WAS PRESENT. PATIENT CONVERTED BACK TO SINUS BRADYCARDIA. HEART RATE IS 58. PATIENT TOLERATED PROCEDURE WELL
== END 2025-02-10 16:05 | disposition home or self-care (01) | DRG 309 ==
LOC: EDH 11:26 → EDHIP 14:34 → 2DH 22:59
PROVIDERS: ADMIT Internal Medicine; ATTEND Internal Medicine
DX: I48.0 Paroxysmal atrial fibrillation (principal); D68.69 Other thrombophilia; E11.9 Type 2 diabetes mellitus without complications; E66.9 Obesity, unspecified; E78.5 Hyperlipidemia, unspecified; Z79.01 Long term (current) use of anticoagulants; I10 Essential (primary) hypertension; I48.19 Other persistent atrial fibrillation; I48.92 Unspecified atrial flutter; N40.0 Benign prostatic hyperplasia without lower urinary tract symptoms; I48.4 Atypical atrial flutter; Z90.49 Acquired absence of other specified parts of digestive tract; Z79.899 Other long term (current) drug therapy; Z68.30 Body mass index [BMI] 30.0-30.9, adult
CPT/HCPCS: 36415; 71045; 80048; 80053; 81001; 83036; 83735; 83880; 84145; 84443; 84484; 85025; 85027; 85610; 85730; 92960; 93005; 93306; 93356; 99285; G0378; J0282; J2003; J2371; J2704; J7060; J0283; J3490